=== PATIENT | male | born 1945 | race Asian ===

== ENCOUNTER 2022-03-14 17:08 | Inpatient (IN) | payer MEDICARE, SELFPAY ==
[2022-03-14] VITALS (16 sets, daily range): BP systolic 85–123; BP diastolic 47–80; PULSE 75–149; RESP 22–38; TEMP 36.3; O2SAT 93–97; BMI 24.9
--- NOTE | 2022-03-14 18:25 | CRLHL7_ITS ---
For Patients: As a result of the Cures Act, medical imaging exams and procedure reports are released immediately into your electronic medical record. You may view this report before your referring provider. If you have questions, please contact your health care provider. INDICATION: Shortness of breath. COMPARISON: None. TECHNIQUE: Single-view chest radiograph. FINDINGS: The heart size is normal. There is a thoracic aortic endograft in place. The mediastinum is enlarged with a tortuous thoracic aorta. There are pulmonary opacities in the right lower lobe and to a lesser degree in the right upper lobe. There is no significant pleural effusion or pneumothorax. IMPRESSION: Right lower lobe pulmonary opacities concerning for infection or aspiration, less likely asymmetric edema. Dictated by Donny Keenan MD @ 03/14/2022 7:28:11 PM (Electronically Signed)
[2022-03-14 18:34] LABS: HCO3 VBG 25 mmol/L (21-28); Lactate* 1.8 mmol/L (0.5-1.9); PCO2 VBG 40 mmHG (40-50); PO2 VBG 28.2 mmHG (25-47); pH VBG 7.407 (7.32-7.43)
[2022-03-14 18:37] LABS: Basophils Percent Auto 0.2 % (0.0-3.0); Eosinophils Percent Auto 0.1 % (0.0-7.0); Hematocrit 39.9 % (37.0-53.0); Hemoglobin* 13.1 gm/dL (13.5-17.5); Immature Granulocytes Abs Auto 0.03 K/uL (0.00-0.30); Lymphocytes Percent Auto 7.6 % (20-44); Mean Corpuscular HGB Conc 33 gm/dL (32-36); Mean Corpuscular Hemoglobin 28 pg (26-34); Mean Corpuscular Volume 85 fL (80-100); Monocytes Percent Auto 8.3 % (0.0-11.0); Neutrophils Percent Auto 83.6 % (42.0-72.0); Platelet Count* 234 K/uL (140-440); RDW Coefficient of Variation % 13.5 % (11.5-15.5); Slide Review Reflex No; White Blood Count* 16.08 K/uL (4.50-11.00)
[2022-03-14] MEDS: dilTIAZem 5 MG/ML inj 10 MG IVP (18:38)
[2022-03-14 18:51] LABS: Chloride* 100 mmol/L (96-114)
[2022-03-14 18:52] LABS: Albumin* 3.8 g/dL (3.3-5.0); Sodium* 134 mmol/L (135-149)
[2022-03-14 18:54] LABS: Creatinine* 1.3 mg/dL (0.5-1.5); Estimated Glomerular Filt Rate 57 ml/min
[2022-03-14 18:55] LABS: Alkaline Phosphatase* 83 U/L (40-150); Aspartate Amino Transferase* 34 U/L (12-35); Bilirubin Direct* 0.2 mg/dL (0.0-0.5); Bilirubin Total* 1.2 mg/dL (0.1-1.5); Blood Urea Nitrogen* 23 mg/dL (7-30); Carbon Dioxide* 23 mmol/L (20-32)
[2022-03-14 18:56] LABS: Alanine Aminotransferase* 21 U/L (4-50); Calcium* 8.1 mg/dL (8.4-10.6); D Dimer Quantitative* 2.26 ug/ml (0.00-0.50)
[2022-03-14 19:04] LABS: NT Pro B Type NatriureticPept* 971 PG/mL (0-450)
[2022-03-14 19:14] LABS: C Reactive Protein* 14.8 mg/dL (0.5-1.0)
[2022-03-14 19:14] LABS: PCR FLU A Negative PCR FLU A (Negative); PCR FLU B Negative PCR FLU B (Negative); PCR RSV Negative PCR RSV (Negative)
[2022-03-14 19:35] LABS: SARS PCR* Negative SARS-CoV-2 (Negative)
[2022-03-14 19:37] LABS: Glucose* 111 mg/dL (60-115)
[2022-03-14] MEDS: 0.9 % SODIUM CHLORIDE 500 ML 500 ML IV ×2 (19:48→22:06)
[2022-03-14] MEDS: cefTRIAXone 1 GM in 0.9 % SODIUM CHLORIDE Mini-bag 100 ML IVPB (19:55)
[2022-03-14 20:29] LABS: Free T4 Free Thyroxine* 1.54 ng/dL (0.70-1.85)
[2022-03-14] MEDS: AZITHROMYCIN 500 MG in 0.9 % SODIUM CHLORIDE 250 ml 250 ML 255 MG IVPB (20:43)
--- NOTE | 2022-03-14 21:22 | ED.GENADULT ---
HPI - General Adult General Date Seen: 03/14/22 Chief complaint: Shortness of Breath/Dyspnea Stated complaint: Trouble breathing Time Seen by Provider: 03/14/22 17:31 Source: patient History of Present Illness HPI narrative: Patient is a 77-year-old male who is here with shortness of breath. He tells me that he has been having difficulty with his breathing for a couple of weeks. He describes cough, intermittent fever, unknown how high, cough is nonproductive. He does not describe any chest pain although he says that he has some epigastric pain related to his cough. He does not feel any palpitations, has not had lightheadedness or fainting. He is not sure about any history of atrial fibrillation. He has had some nausea and diarrhea but no vomiting. He has not had any lower extremity pain but does describe some intermittent lower extremity swelling. He did tell me that he thinks he has a history of heart failure and takes a water pill. He also says that he has a couple of stents. He is not entirely clear on his heart history. He has never been to our hospital before. He does not smoke or drink. He is here today with his grandson. He lives at home with his daughter and grandson as well as I believe his . Related Data Home Medications Medication Instructions Recorded Confirmed aspirin 81 mg chewable tablet 81 mg PO DAILY 03/14/22 03/14/22 (Aspirin Childrens) atorvastatin 40 mg tablet 40 mg PO DAILY 03/14/22 03/14/22 losartan 50 mg tablet (Cozaar) 50 mg PO DAILY 03/14/22 03/14/22 metoprolol succinate 25 mg capsule 25 mg PO DAILY 03/14/22 03/14/22 sprinkle, ext. release 24 hr montelukast 10 mg tablet 10 mg PO QHS 03/14/22 03/14/22 Allergies Allergy/AdvReac Type Severity Reaction Status Date / Time naproxen [From Naprosyn] Allergy Mild Verified 03/14/22 17:27 Review of Systems Status of ROS: Reports: 10 or more systems reviewed and unremarkable except as noted in History and below [facility] Social History Smoking Status: Never smoker Do you use any of these nicotine containing products: None Second hand tobacco smoke exposure: No How often do you have a drink containing alcohol: never How often do you have six or more drinks on one occasion: Never AUDIT-C Alcohol total score: 0 Non-prescribed substance use: denies use service: Yes Exam Narrative: Exam Narrative: Vital signs as noted above. In general, an alert, nontoxic male. Head: Normocephalic, atraumatic. Eyes: Pupils are equal reactive. Extraocular movements are full. Conjunctivae are normal. ENT: Mucous membranes are moist. Throat is normal. Neck: Supple without lymphadenopathy. Heart: Irregularly irregular, tachycardic. No murmur. Lungs: Occasional scattered wheeze, rhonchi. No ncreased work of breathing. Abdomen: Soft and nontender. No organomegaly. Extremities: Well perfused. No edema. No calf tenderness. Pulses intact. Neurologic: Patient is alert and oriented to person and place. Speech is fluent. Face is symmetric. Moves all extremities equally. Affect: Normal. Skin: Warm and dry. Well perfused. Const: Vital Signs, click to edit/add: Vital Signs - 24 hr 03/14/22 17:19 03/14/22 18:02 03/14/22 18:33 Temperature 97.4 F L Pulse Rate [Right Pulse Oximeter] 102 H 146 H Respiratory Rate 28 H 30 H Blood Pressure [Le ft Forearm] 123/73 117/80 Pulse Oximetry 95 95 95 Oxygen Delivery Me thod Room Air Room Air Documenting provider has reviewed patient's vital signs: yes Course Course Hospital Course: Patient was maintained on the monitor and oximetry. Noted to be tachycardic and in atrial fibrillation on the monitor. An EKG by my review shows atrial fibrillation with a rate of 148 beats per minute. Nonspecific ST changes but no acute ST segment elevation or depression. Initially, given his stated history of heart failure, I was hesitant to give too much fluid. It was unclear whether his primary problem was atrial fibrillation and poor rate control or whether he had another cause for his shortness of breath such as pneumonia, COPD, pulmonary embolism etcetera. Therefore, I gave him 10 mg of diltiazem, however this did not provide significant rate control and his blood pressure did drop somewhat. He had a chest x-ray at that point and this does show an infiltrate on the right suggestive of a lobar pneumonia. Final radiology report notes a right lower lobe pulmonary opacity concerning for infection or aspiration. His white blood cell count was elevated at 16, hemoglobin of 13.1. Metabolic panel was relatively unremarkable. Lactate was 1.8. LFTs unremarkable, CRP elevated at 14.8. BNP was 971. TSH was 6.7 but free T4 was 1.5. COVID, influenza and RSV were all negative. Troponin was 0. At this point, I think his primary problem is likely infectious, with atrial fibrillation and rapid ventricular response being a secondary problem. It is unclear to me whether he has underlying atrial fibrillation or not, my suspicion is that this is a new problem given that he does not appear to be anticoagulated, but I do not have access to any prior records to confirm this. He does not appear that he is on any kind of diuretic, so again I am not certain whether he has a history of congestive heart failure but given the absence of a diuretic and the presence of metoprolol on his medication list I am again somewhat suspicious that he does not have underlying heart failure. I have given him 500 mL of normal saline, I think it will give him an additional 500 mL as he seemed to have tolerated that 1st 500 just fine. I am going to hold off on further rate medication and see how he does treating pneumonia and giving him some fluids. If we need to add further rate control in after that we can do so. He has had azithromycin and ceftriaxone IV. Blood cultures are pending. He has been afebrile here. Plan will be admission to the hospital for IV antibiotics and rate control of his atrial fibrillation. I have discussed the likely need for a coagulation with him as well though I did not initiate that in the ER. Vital Signs Vital signs: Initial Vital Signs Temperature 97.4 F L 03/14/22 17:19 Temperature Source Temporal Artery Scan 03/14/22 17:19 Pulse Rate 102 H 03/14/22 17:19 Respiratory Rate 28 H 03/14/22 17:19 Blood Pressure 123/73 03/14/22 17:19 Blood Pressure Mean 89 03/14/22 17:19 Blood Pressure Position Sitting 03/14/22 17:19 Pulse Oximetry 95 03/14/22 17:19 Oxygen Delivery Method 03/14/22 17:19 Vital Signs Temperature 97.4 F L 03/14/22 17:19 Pulse Rate 102 H 03/14/22 17:19 Respiratory Rate 28 H 03/14/22 17:19 Blood Pressure 123/73 03/14/22 17:19 Pulse Oximetry 95 03/14/22 17:19 Oxygen Delivery Method 03/14/22 17:19 Temperature 97.4 F L 03/14/22 17:19 Pulse Rate 146 H 03/14/22 18:02 Respiratory Rate 30 H 03/14/22 18:02 Blood Pressure 117/80 03/14/22 18:02 Pulse Oximetry 95 03/14/22 18:33 Oxygen Delivery Method 03/14/22 18:02 Medical Decision Making Lab Data Labs: Lab Results 03/14/22 03/14/22 03/14/22 Range/Units 18:20 18:20 18:20 WBC 16.08 H (4.50-11.00) K/uL RBC 4.70 (4.30-5.90) m/uL Hgb 13.1 L (13.5-17.5) gm/dL Hct 39.9 (37.0-53.0) % MCV 85 (80-100) fL MCH 28 (26-34) pg MCHC 33 (32-36) gm/dL RDW Coeff of Zachary 13.5 (11.5-15.5) % Plt Count 234 (140-440) K/uL Neut % (Auto) 83.6 H (42.0-72.0) % Lymph % (Auto) 7.6 L (20-44) % [place] % (Auto) 8.3 (0.0-11.0) % Eos % (Auto) 0.1 (0.0-7.0) % Baso % (Auto) 0.2 (0.0-3.0) % Neut # (Auto) 13.40 H (1.7-7.0) K/uL Lymph # (Auto) 1.20 (0.90-2.90) K/uL [place] # (Auto) 1.30 H (0.00-0.90) K/UL Eos # (Auto) 0.00 (0.00-0.50) K/uL Baso # (Auto) 0.00 (0.00-0.30) K/uL Abs Immat Gran (auto) 0.03 (0.00-0.30) K/uL D-Dimer Quant (PE/DVT) 2.26 H (0.00-0.50) ug/ml VBG pH (7.32-7.43) VBG pCO2 (40-50) mmHG VBG pO2 (25-47) mmHG VBG HCO3 (21-28) mmol/L Sodium 134 L (135-149) mmol/L Potassium 4.0 (3.6-5.1) mmol/L Chloride 100 (96-114) mmol/L Carbon Dioxide 23 (20-32) mmol/L BUN 23 (7-30) mg/dL Creatinine 1.3 (0.5-1.5) mg/dL Estimated Creat Clear 45.20 Estimated GFR 57 ml/min Glucose 111 (60-115) mg/dL Lactate (0.5-1.9) mmol/L Calcium 8.1 L (8.4-10.6) mg/dL Total Bilirubin 1.2 (0.1-1.5) mg/dL Direct Bilirubin 0.2 (0.0-0.5) mg/dL AST 34 (12-35) U/L ALT 21 (4-50) U/L Alkaline Phosphatase 83 (40-150) U/L C-Reactive Protein 14.8 H (0.5-1.0) mg/dL NT-Pro-B Natriuret Pep 971 H (0-450) PG/mL Total Protein 7.0 (6.0-8.3) g/dL Albumin 3.8 (3.3-5.0) g/dL TSH (0.270-4.200) uIU/mL Free T4 (0.70-1.85) ng/dL SARS-CoV-2 (PCR) (Negative) Influenza Type A (PCR) (Negative) Influenza Type B (PCR) (Negative) RSV (PCR) (Negative) POC Troponin I (0.01-0.04) ng/ml 03/14/22 03/14/22 03/14/22 Range/Units 18:20 18:20 18:20 WBC (4.50-11.00) K/uL RBC (4.30-5.90) m/uL Hgb (13.5-17.5) gm/dL Hct (37.0-53.0) % MCV (80-100) fL MCH (26-34) pg MCHC (32-36) gm/dL RDW Coeff of Zachary (11.5-15.5) % Plt Count (140-440) K/uL Neut % (Auto) (42.0-72.0) % Lymph % (Auto) (20-44) % [place] % (Auto) (0.0-11.0) % Eos % (Auto) (0.0-7.0) % Baso % (Auto) (0.0-3.0) % Neut # (Auto) (1.7-7.0) K/uL Lymph # (Auto) (0.90-2.90) K/uL [place] # (Auto) (0.00-0.90) K/UL Eos # (Auto) (0.00-0.50) K/uL Baso # (Auto) (0.00-0.30) K/uL Abs Immat Gran (auto) (0.00-0.30) K/uL D-Dimer Quant (PE/DVT) (0.00-0.50) ug/ml VBG pH 7.407 (7.32-7.43) VBG pCO2 40 (40-50) mmHG VBG pO2 28.2 (25-47) mmHG VBG HCO3 25 (21-28) mmol/L Sodium (135-149) mmol/L Potassium (3.6-5.1) mmol/L Chloride (96-114) mmol/L Carbon Dioxide (20-32) mmol/L BUN (7-30) mg/dL Creatinine (0.5-1.5) mg/dL Estimated Creat Clear Estimated GFR ml/min Glucose (60-115) mg/dL Lactate 1.8 (0.5-1.9) mmol/L Calcium (8.4-10.6) mg/dL Total Bilirubin (0.1-1.5) mg/dL Direct Bilirubin (0.0-0.5) mg/dL AST (12-35) U/L ALT (4-50) U/L Alkaline Phosphatase (40-150) U/L C-Reactive Protein (0.5-1.0) mg/dL NT-Pro-B Natriuret Pep (0-450) PG/mL Total Protein (6.0-8.3) g/dL Albumin (3.3-5.0) g/dL TSH 6.790 H (0.270-4.200) uIU/mL Free T4 1.54 (0.70-1.85) ng/dL SARS-CoV-2 (PCR) (Negative) Influenza Type A (PCR) (Negative) Influenza Type B (PCR) (Negative) RSV (PCR) (Negative) POC Troponin I 0.00 L (0.01-0.04) ng/ml 03/14/22 Range/Units 18:25 WBC (4.50-11.00) K/uL RBC (4.30-5.90) m/uL Hgb (13.5-17.5) gm/dL Hct (37.0-53.0) % MCV (80-100) fL MCH (26-34) pg MCHC (32-36) gm/dL RDW Coeff of Zachary (11.5-15.5) % Plt Count (140-440) K/uL Neut % (Auto) (42.0-72.0) % Lymph % (Auto) (20-44) % [place] % (Auto) (0.0-11.0) % Eos % (Auto) (0.0-7.0) % Baso % (Auto) (0.0-3.0) % Neut # (Auto) (1.7-7.0) K/uL Lymph # (Auto) (0.90-2.90) K/uL [place] # (Auto) (0.00-0.90) K/UL Eos # (Auto) (0.00-0.50) K/uL Baso # (Auto) (0.00-0.30) K/uL Abs Immat Gran (auto) (0.00-0.30) K/uL D-Dimer Quant (PE/DVT) (0.00-0.50) ug/ml VBG pH (7.32-7.43) VBG pCO2 (40-50) mmHG VBG pO2 (25-47) mmHG VBG HCO3 (21-28) mmol/L Sodium (135-149) mmol/L Potassium (3.6-5.1) mmol/L Chloride (96-114) mmol/L Carbon Dioxide (20-32) mmol/L BUN (7-30) mg/dL Creatinine (0.5-1.5) mg/dL Estimated Creat Clear Estimated GFR ml/min Glucose (60-115) mg/dL Lactate (0.5-1.9) mmol/L Calcium (8.4-10.6) mg/dL Total Bilirubin (0.1-1.5) mg/dL Direct Bilirubin (0.0-0.5) mg/dL AST (12-35) U/L ALT (4-50) U/L Alkaline Phosphatase (40-150) U/L C-Reactive Protein (0.5-1.0) mg/dL NT-Pro-B Natriuret Pep (0-450) PG/mL Total Protein (6.0-8.3) g/dL Albumin (3.3-5.0) g/dL TSH (0.270-4.200) uIU/mL Free T4 (0.70-1.85) ng/dL SARS-CoV-2 (PCR) Negative SARS-CoV-2 (Negative) Influenza Type A (PCR) Negative PCR FLU A (Negative) Influenza Type B (PCR) Negative PCR FLU B (Negative) RSV (PCR) Negative PCR RSV (Negative) POC Troponin I (0.01-0.04) ng/ml Discharge Plan Discharge Prescriptions: No Action aspirin [Aspirin Childrens] 81 mg tablet,chewable 81 mg PO DAILY losartan [Cozaar] 50 mg tablet 50 mg PO DAILY metoprolol succinate 25 mg capsule,sprinkle,ER 24hr 25 mg PO DAILY atorvastatin 40 mg tablet 40 mg PO DAILY montelukast 10 mg tablet 10 mg PO QHS Follow Up/Referrals: Provider,Not a Local [Primary Care Provider] -
--- NOTE | 2022-03-14 22:53 | PM.IMHP1 ---
Hospitalist- H&P: HPI History of Present Illness Date Seen: 03/14/22 Chief complaint: Trouble breathing Narrative: Susan Johnson is a 77 year old male who presented to the ED for dyspnea, noted for the past few weeks, intermittently. He's had associated chest discomfort, cough, and difficulty sleeping (concerning for orthopnea). ER Course and Findings: - a fib with RVR on arrival (HR 140s), improved after IV Diltiazem x1 - negative troponin - RLL pneumonia, treated with Ceftriaxone and Azithromycin I don't have access to patient's medical history or medication list. His PCP is Dr. Naima Evangelista; she's at [facility] ([phone]). Susan notes a history of CKD, CHF, a fib, lung disease (treated in 2018, source unclear). On ASA for anticoagulation. No history of OK, sounds like he's had a stent placed in the past (thoracic aortic endograft noted on CXR). Doesn't remember when his last TTE was. History of multiple hospitalizations in 2018 (at [place]) for recurrent syncope, not an issue recently. Lives with daughter Chio (medical decision maker, if needed) and grandson in [place]. Requests Full Code status. Nonsmoker, no ETOH use. Born in [place], has been in [place] for 40+ years. + COVID vaccinated. Previously worked for the [employer] district in [place], [place]. Review of Systems Status of ROS: Reports: 10 or more systems reviewed and unremarkable except as noted in History and below Narrative: see HPI PFSH PFSH Medical History (Updated 03/14/22 @ 23:43 by Lucy Scott MD) Essential hypertension Hyperlipidemia Surgical History (Updated 03/14/22 @ 23:49 by Lucy Scott MD) S/P insertion of endovascular thoracic aortic stent graft Social History Smoking Status: Never smoker Do you use any of these nicotine containing products: None Second hand tobacco smoke exposure: No How often do you have a drink containing alcohol: never How often do you have six or more drinks on one occasion: Never AUDIT-C Alcohol total score: 0 Non-prescribed substance use: denies use service: Yes Meds Home Medications and Allergies Home Medications Medication Instructions Recorded Confirmed Type aspirin 81 mg chewable tablet 81 mg PO DAILY 03/14/22 03/14/22 History (Aspirin Childrens) atorvastatin 40 mg tablet 40 mg PO DAILY 03/14/22 03/14/22 History losartan 50 mg tablet (Cozaar) 50 mg PO DAILY 03/14/22 03/14/22 History metoprolol succinate 25 mg capsule 25 mg PO DAILY 03/14/22 03/14/22 History sprinkle, ext. release 24 hr montelukast 10 mg tablet 10 mg PO QHS 03/14/22 03/14/22 History Home Medication Comments: Will confirm home med list with pharmacy Allergies Allergy/AdvReac Type Severity Reaction Status Date / Time naproxen [From Naprosyn] Allergy Mild Verified 03/14/22 17:27 Exam Narrative: Exam Narrative: GEN: Alert and oriented, answering questions appropriately HEENT: Normal external ears, EOMIs bilaterally CV: RRR (sinus rhythm during my exam), No concerning murmurs, rubs, or gallops R: Decreased air movement bilateral bases, rales RLL, no wheezing Ext: wwp, no concerning edema Skin: Scars noted anterior BLEs, chronic and stable, per patient Neuro: Nonfocal, no resting tremor, gait not observed Psych: Appropriate Const: Vital Signs, click to edit/add: Vital Signs - 24 hr 03/14/22 17:19 03/14/22 18:02 03/14/22 18:33 Temperature 97.4 F L Pulse Rate [Right Pulse Oximeter] 102 H 146 H Respiratory Rate 28 H 30 H Blood Pressure [Le ft Forearm] 123/73 117/80 Pulse Oximetry 95 95 95 Oxygen Delivery Me thod Room Air Room Air Hospitalist - H&P: Result Labs Labs: Short CBC 03/14/22 Range/Units 18:20 WBC 16.08 H (4.50-11.00) K/uL Hgb 13.1 L (13.5-17.5) gm/dL Hct 39.9 (37.0-53.0) % Plt Count 234 (140-440) K/uL BMP 03/14/22 18:20 Sodium 134 L Potassium 4.0 Chloride 100 Carbon Dioxide 23 BUN 23 Creatinine 1.3 Glucose 111 Calcium 8.1 L Liver Function 10/31/22 Range/Units 18:20 Total Bilirubin 1.2 (0.1-1.5) mg/dL Direct Bilirubin 0.2 (0.0-0.5) mg/dL AST 34 (12-35) U/L ALT 21 (4-50) U/L Alkaline Phosphatase 83 (40-150) U/L Albumin 3.8 (3.3-5.0) g/dL INDICATION: Shortness of breath. COMPARISON: None. TECHNIQUE: Single-view chest radiograph. FINDINGS: The heart size is normal. There is a thoracic aortic endograft in place. The mediastinum is enlarged with a tortuous thoracic aorta. There are pulmonary opacities in the right lower lobe and to a lesser degree in the right upper lobe. There is no significant pleural effusion or pneumothorax. IMPRESSION: Right lower lobe pulmonary opacities concerning for infection or aspiration, less likely asymmetric edema. Assessment and Plan Assessment and plan (1) Dyspnea: Status: Acute Assessment and Plan: - likely multifactorial: a fib, pneumonia, possible CHF exacerbation - d-dimer elevated in ED, will obtain CT PE protocol - TTE tomorrow - continue Ceftriaxone and Azithromycin (2) Atrial fibrillation with rapid ventricular response: Status: Acute Assessment and Plan: - converted in ED after Diltiazem x1. Will use this prn, continue home Metoprolol. (3) Pneumonia: Status: Acute Assessment and Plan: - continue Azithromycin and Ceftriaxone (4) Essential hypertension: Status: Acute (5) Hyperlipidemia: Status: Acute Plan - per above - obtain outside records from PCP, med rec
--- NOTE | 2022-03-14 23:03 | ED.NURSE ---
converted to sinus rhythm-84. [address] echevarria was in the room doing an interview and had noticed the change also.
--- NOTE | 2022-03-14 23:21 | CRLHL7_ITS ---
For Patients: As a result of the Century Cures Act, medical imaging exams and procedure reports are released immediately into your electronic medical record. You may view this report before your referring provider. If you have questions, please contact your health care provider. INDICATION: Shortness of breath. TECHNIQUE: CT chest PE was acquired with 95 cc Isovue 370 IV contrast. COMPARISON: Chest radiograph earlier same day. FINDINGS: Heart and vasculature: Contrast opacification of the pulmonary arterial tree is adequate. No sign of pulmonary embolism. Heart size is normal. Pulmonary artery is normal in caliber. Ectatic ascending thoracic aorta measuring 4.5 cm. 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 Two excluded aneurysmal sacs measuring approximately 10.8 x 5.5 cm and 5.8 x 5.7 cm, respectively. Calcified and soft plaque of the proximal left common carotid artery with moderate stenosis. Lungs and pleura: Mild diffuse bronchial wall thickening. Patchy ground glass opacities involving the right middle and bilateral lower lobes, right greater than left. Clustered nodularity in the anteromedial left upper lobe. No pleural effusions, pleural thickening, or pneumothorax. Lymph nodes/mediastinum: No mediastinal, hilar, or axillary adenopathy. Thyroid gland is unremarkable. Chest wall: No masses. Upper abdomen: Right hepatic lobe cysts. Bones: Unremarkable for age. IMPRESSION: 1. No evidence of pulmonary embolism. 2. Scattered patchy ground glass opacities in the right middle and right greater than left lower lobes, likely representing an infectious/inflammatory process. 3. Endovascular stent graft repair of descending thoracic aortic aneurysms. Please note that all CT scans at this facility use dose modulation, iterative reconstruction, and/or weight-based dosing when appropriate to reduce radiation dose to as low as reasonably achievable. Dictated by Ugo Pabon MD @ 03/15/2022 12:45:47 AM (Electronically Signed)
[2022-03-15] VITALS (9 sets, daily range): BP systolic 108–153; BP diastolic 52–79; PULSE 68–83; RESP 22–28; TEMP 36.4–37.2; O2SAT 93–98; BMI 24.1
[2022-03-15] MEDS: RIVAROXABAN 10 MG TABLET 20 MG PO ×2 (01:03→18:43)
--- NOTE | 2022-03-15 03:21 | PC.NURSE ---
admission note: pt pleasant, A&O. Denies chest pain, SOB, pain, and N/V. Tele reads NSR. Up 1 Assist. Pt unsure of which pharmacy he wanted, pt will update us after he speaks to his daughter in AM. Pt otherwise cooperative and resting in bed with call light within reach.
[2022-03-15 06:56] LABS: Basophils Absolute Auto 0.02 K/uL (0.00-0.30); Basophils Percent Auto 0.2 % (0.0-3.0); Eosinophils Absolute Auto 0.06 K/uL (0.00-0.50); Eosinophils Percent Auto 0.6 % (0.0-7.0); Hematocrit 34.1 % (37.0-53.0); Hemoglobin* 11.1 gm/dL (13.5-17.5); Immature Granulocytes Abs Auto 0.04 K/uL (0.00-0.30); Lymphocytes Percent Auto 11.2 % (20-44); Mean Corpuscular HGB Conc 33 gm/dL (32-36); Mean Corpuscular Hemoglobin 28 pg (26-34); Mean Corpuscular Volume 86 fL (80-100); Neutrophils Percent Auto 77.6 % (42.0-72.0); Platelet Count* 224 K/uL (140-440); RDW Coefficient of Variation % 13.7 % (11.5-15.5); Red Blood Count 3.97 m/uL (4.30-5.90); White Blood Count* 10.85 K/uL (4.50-11.00)
[2022-03-15 06:57] LABS: Slide Review Reflex No
[2022-03-15 07:18] LABS: Albumin* 3.2 g/dL (3.3-5.0); Chloride* 102 mmol/L (96-114)
[2022-03-15 07:19] LABS: Potassium* 4.3 mmol/L (3.6-5.1); Sodium* 134 mmol/L (135-149)
[2022-03-15 07:21] LABS: Alkaline Phosphatase* 76 U/L (40-150); Aspartate Amino Transferase* 28 U/L (12-35); Bilirubin Total* 0.8 mg/dL (0.1-1.5); Carbon Dioxide* 26 mmol/L (20-32); Creatinine* 1.2 mg/dL (0.5-1.5); Est. Creatinine Clearance* 48.96; Estimated Glomerular Filt Rate 63 ml/min; Total Protein* 6.1 g/dL (6.0-8.3)
[2022-03-15 07:22] LABS: Alanine Aminotransferase* 18 U/L (4-50); Blood Urea Nitrogen* 22 mg/dL (7-30); Calcium* 7.5 mg/dL (8.4-10.6); Glucose* 84 mg/dL (60-115); Magnesium* 2.1 mg/dL (1.5-2.6)
[2022-03-15 07:26] LABS: Troponin I* 0.02 ng/mL (0.01-0.04)
[2022-03-15] MEDS: SODIUM CHLORIDE 0.9 % (FLUSH) 10 ML SYRINGE IVF ×2 (08:21→19:56)
[2022-03-15] MEDS: METOPROLOL SUCCINATE (XL) 25 MG TAB PO (08:21)
[2022-03-15] MEDS: ATORVASTATIN CALCIUM 40 MG TABLET PO (08:21)
--- NOTE | 2022-03-15 11:08 | PM.IMPN1 ---
Progress Note: A&P Assessment and plan (1) Dyspnea: Problem details: Multifactorial: COPD/asthma exacerbation, community-acquired pneumonia, AFib with RVR upon ER presentation Status: Acute Assessment and Plan: - patient is slowly improving, not requiring supplemental oxygen - given wheezing this morning and history of COPD/asthma, initiate steroids - RT referral - continue treatment with antibiotics, nebs, and singular (2) Atrial fibrillation with rapid ventricular response: Problem details: History of paroxysmal atrial fibrillation as an outpatient, intermittently compliant with Xarelto secondary to cost Status: Acute Assessment and Plan: - has remained in sinus rhythm after having diltiazem in the emergency room - continue home dose of metoprolol, we have initiated Xarelto during stay and will recommend this upon discharge (3) Pneumonia: Status: Acute Assessment and Plan: - continue azithromycin and ceftriaxone (4) Essential hypertension: Status: Acute (5) Hyperlipidemia: Status: Acute (6) COPD (chronic obstructive pulmonary disease): Status: Acute (7) Moderate persistent asthma: Status: Acute Plan - per above - TTE today - Xarelto for prophylaxis - home with daughter when medically stable, possibly as early as tomorrow Subjective Date Seen: 03/15/22 Interval history: No acute events overnight, no further runs of AFib with RVR. CT scan did not exhibit PE. Patient is little more wheezy this morning. Tolerating current treatments and medications. Received patient's outpatient records from [facility] in [place]. He does have a history of paroxysmal atrial fibrillation on chart review; was on Xarelto but has intermittently stopped this secondary to cost. He also has a history of moderate persistent asthma and COPD, treated with daily Singulair and prn Albuterol. Exam Narrative: Exam Narrative: GEN: Alert and oriented, sitting comfortably in bed and speaking in full sentences HEENT: Normal external ears, EOMIs bilaterally CV: RRR, soft systolic murmur without concerning features or radiation, no rubs or gallops R: Wheezing in bilateral apices, no rales or rhonchi Ext: wwp, no concerning edema Skin: No acute or concerning skin lesions or rashes on exposed skin Neuro: Nonfocal Psych: Appropriate Const: Vital Signs, click to edit/add: Vital Signs - 24 hr 03/14/22 17:19 03/14/22 18:02 03/14/22 18:33 Temperature 97.4 F L Pulse Rate Pulse Rate [Left P ulse Oximeter] Pulse Rate [Right Pulse Oximeter] 102 H 146 H Respiratory Rate 28 H 30 H Blood Pressure [Le ft Arm] Blood Pressure [Le ft Forearm] 123/73 117/80 Pulse Oximetry 95 95 95 Oxygen Delivery Me thod Room Air Room Air 03/14/22 18:30 03/14/22 19:00 03/14/22 19:30 Temperature Pulse Rate Pulse Rate [Left P ulse Oximeter] Pulse Rate [Right Pulse Oximeter] 135 H 128 H 135 H Respiratory Rate 24 38 H 23 Blood Pressure [Le ft Arm] Blood Pressure [Le ft Forearm] 96/75 111/47 L 86/60 L Pulse Oximetry 94 95 95 Oxygen Delivery Me thod Room Air Room Air Room Air 03/14/22 19:50 03/14/22 20:00 03/14/22 20:30 Temperature Pulse Rate Pulse Rate [Left P ulse Oximeter] Pulse Rate [Right Pulse Oximeter] 129 H 112 H 149 H Respiratory Rate 30 H 22 22 Blood Pressure [Le ft Arm] Blood Pressure [Le ft Forearm] 109/65 100/54 L 94/71 Pulse Oximetry 93 95 95 Oxygen Delivery Nc thod Room Air Room Air Room Air 03/14/22 21:00 03/14/22 21:30 03/14/22 22:00 Temperature Pulse Rate Pulse Rate [Left P ulse Oximeter] Pulse Rate [Right Pulse Oximeter] 128 H 81 80 Respiratory Rate 24 28 H Blood Pressure [Le ft Arm] Blood Pressure [Le ft Forearm] 85/72 L 94/58 L 99/59 L Pulse Oximetry 97 95 Oxygen Delivery Me thod Room Air Room Air 03/14/22 22:30 03/14/22 23:00 03/15/22 00:00 Temperature Pulse Rate Pulse Rate [Left P ulse Oximeter] Pulse Rate [Right Pulse Oximeter] 79 81 81 Respiratory Rate 27 H 28 H Blood Pressure [Le ft Arm] Blood Pressure [Le ft Forearm] 98/50 L 117/64 113/52 L Pulse Oximetry 94 97 98 Oxygen Delivery Me thod Room Air Room Air 03/14/22 23:30 03/15/22 00:41 03/15/22 00:41 Temperature 99 F Pulse Rate Pulse Rate [Left P ulse Oximeter] 68 Pulse Rate [Right Pulse Oximeter] 75 Respiratory Rate 33 H 28 H 28 H Blood Pressure [Le ft Arm] 117/61 Blood Pressure [Le ft Forearm] 118/61 Pulse Oximetry 97 97 97 Oxygen Delivery Nc thod Room Air Room Air Room Air 03/14/22 23:26 03/15/22 01:58 03/15/22 03:43 Temperature 98.8 F Pulse Rate 83 Pulse Rate [Left P ulse Oximeter] 78 Pulse Rate [Right Pulse Oximeter] Respiratory Rate 28 H 28 H Blood Pressure [Le ft Arm] 110/69 Blood Pressure [Le ft Forearm] Pulse Oximetry 97 93 Oxygen Delivery Nc thod Room Air Room Air 03/15/22 07:00 03/15/22 07:00 03/15/22 07:00 Temperature 97.8 F Pulse Rate 75 Pulse Rate [Left P ulse Oximeter] 78 73 Pulse Rate [Right Pulse Oximeter] Respiratory Rate 24 24 Blood Pressure [Le ft Arm] 134/78 Blood Pressure [Le ft Forearm] Pulse Oximetry 94 [facility] Labs Labs: Laboratory Results - last 24 hr 03/14/22 03/14/22 03/14/22 18:20 18:20 18:20 WBC 16.08 H RBC 4.70 Hgb 13.1 L Hct 39.9 MCV 85 MCH 28 MCHC 33 RDW Coeff of Zachary 13.5 Plt Count 234 Neut % (Auto) 83.6 H Lymph % (Auto) 7.6 L [place] % (Auto) 8.3 Eos % (Auto) 0.1 Baso % (Auto) 0.2 Neut # (Auto) 13.40 H Lymph # (Auto) 1.20 [place] # (Auto) 1.30 H Eos # (Auto) 0.00 Baso # (Auto) 0.00 Abs Immat Gran (auto) 0.03 D-Dimer Quant (PE/DVT) 2.26 H VBG pH VBG pCO2 VBG pO2 VBG HCO3 Sodium 134 L Potassium 4.0 Chloride 100 Carbon Dioxide 23 BUN 23 Creatinine 1.3 Estimated Creat Clear 45.20 Estimated GFR 57 Glucose 111 Lactate Calcium 8.1 L Magnesium Total Bilirubin 1.2 Direct Bilirubin 0.2 AST 34 ALT 21 Alkaline Phosphatase 83 Troponin I C-Reactive Protein 14.8 H NT-Pro-B Natriuret Pep 971 H Total Protein 7.0 Albumin 3.8 TSH Free T4 SARS-CoV-2 (PCR) Influenza Type A (PCR) Influenza Type B (PCR) RSV (PCR) POC Troponin I 03/14/22 03/14/22 03/14/22 18:20 18:20 18:20 WBC RBC Hgb Hct MCV MCH MCHC RDW Coeff of Zachary Plt Count Neut % (Auto) Lymph % (Auto) [place] % (Auto) Eos % (Auto) Baso % (Auto) Neut # (Auto) Lymph # (Auto) [place] # (Auto) Eos # (Auto) Baso # (Auto) Abs Immat Gran (auto) D-Dimer Quant (PE/DVT) VBG pH 7.407 VBG pCO2 40 VBG pO2 28.2 VBG HCO3 25 Sodium Potassium Chloride Carbon Dioxide BUN Creatinine Estimated Creat Clear Estimated GFR Glucose Lactate 1.8 Calcium Magnesium Total Bilirubin Direct Bilirubin AST ALT Alkaline Phosphatase Troponin I C-Reactive Protein NT-Pro-B Natriuret Pep Total Protein Albumin TSH 6.790 H Free T4 1.54 SARS-CoV-2 (PCR) Influenza Type A (PCR) Influenza Type B (PCR) RSV (PCR) POC Troponin I 0.00 L 03/14/22 03/15/22 03/15/22 18:25 06:12 06:12 WBC 10.85 RBC 3.97 L Hgb 11.1 L Hct 34.1 L MCV 86 MCH 28 MCHC 33 RDW Coeff of Zachary 13.7 Plt Count 224 Neut % (Auto) 77.6 H Lymph % (Auto) 11.2 L [place] % (Auto) 10.0 Eos % (Auto) 0.6 Baso % (Auto) 0.2 Neut # (Auto) 8.40 H Lymph # (Auto) 1.20 [place] # (Auto) 1.10 H Eos # (Auto) 0.06 Baso # (Auto) 0.02 Abs Immat Gran (auto) 0.04 D-Dimer Quant (PE/DVT) VBG pH VBG pCO2 VBG pO2 VBG HCO3 Sodium 134 L Potassium 4.3 Chloride 102 Carbon Dioxide 26 BUN 22 Creatinine 1.2 Estimated Creat Clear 48.96 Estimated GFR 63 Glucose 84 Lactate Calcium 7.5 L Magnesium 2.1 Total Bilirubin 0.8 Direct Bilirubin AST 28 ALT 18 Alkaline Phosphatase 76 Troponin I 0.02 C-Reactive Protein NT-Pro-B Natriuret Pep Total Protein 6.1 Albumin 3.2 L TSH Free T4 SARS-CoV-2 (PCR) Negative SARS-CoV-2 Influenza Type A (PCR) Negative PCR FLU A Influenza Type B (PCR) Negative PCR FLU B RSV (PCR) Negative PCR RSV POC Troponin I
[2022-03-15] MEDS: predniSONE 20 MG TABLET 40 MG PO (11:26)
[2022-03-15] MEDS: ALBUTEROL SULFATE 2.5 MG/3 ML VIAL.NEB NEB (12:30)
--- NOTE | 2022-03-15 16:28 | RESP.RT ---
Pt seen in early afternoon. BBS clear at that time. Breathing is comfortable, regular. Continue with PRN albuterol nebs.
--- NOTE | 2022-03-15 17:14 | PC.NURSE ---
crackles/wheezes to bilateral lungs. Neb given. non productive cough - pt reports pn 2/10 but denies need for tylenol. A/Ox3 - pleasant and cooperative. moving independent in room without concerns.
[2022-03-15] MEDS: AZITHROMYCIN 250 MG TABLET PO (18:43)
[2022-03-15] MEDS: cefTRIAXone 1 GM in 0.9 % SODIUM CHLORIDE Mini-bag 100 ML IVPB (18:44)
[2022-03-15] MEDS: IPRAT-ALBUT 0.5-2.5 MG/3 ML NEB 1 NEB IH ×2 (19:56→23:58)
[2022-03-15] MEDS: PANTOPRAZOLE SODIUM 40 MG INJ IVP (23:01)
[2022-03-15] MEDS: guaiFENesin 100 MG/ML CUP PO (23:59)
[2022-03-16] VITALS (8 sets, daily range): BP systolic 111–138; BP diastolic 71–88; PULSE 74–147; RESP 18–26; TEMP 36.4–36.7; O2SAT 90–95
--- NOTE | 2022-03-16 03:36 | PC.NURSE ---
Davi called at 0315 to report of patient's persistent cough and inability to sleep. Receiving nurse informed commercial lines underwriter that she is going to call back after discussing with the duty MD but has not call back yet.
--- NOTE | 2022-03-16 03:48 | PC.NURSE ---
A follow up call to Davi placed at [phone] as a reminder and racebook writer was told MD is attending to admission case through Davi video and need to wait until done.
[2022-03-16] MEDS: CODEINE/GUAIFENESIN 20-200MG/10 ML SOLN PO ×4 (04:37→21:26)
[2022-03-16] MEDS: IPRAT-ALBUT 0.5-2.5 MG/3 ML NEB 1 NEB IH ×3 (04:43→12:40)
--- NOTE | 2022-03-16 04:44 | PC.NURSE ---
Davi DEGLADO called back at 0410 and ordered for Codeine/Guaifenesin 10ml PRN 4QH.
--- NOTE | 2022-03-16 05:17 | PC.NURSE ---
Shift note: Pt has been having persistent cough and difficulty sleeping. Pt complained of epigastric pain r/t the persistent cough. Ipratropium/Albuterol neb given 2x and Guaifenesin given but were ineffective. Davi called and ordered Codeine/Guaifenesin 10ml 4qh. Pt is independent in room.
[2022-03-16 06:03] LABS: HCO3 VBG 26 mmol/L (21-28); PCO2 VBG 46 mmHG (40-50); PO2 VBG 25.8 mmHG (25-47)
[2022-03-16 06:25] LABS: Basophils Absolute Auto 0.01 K/uL (0.00-0.30); Basophils Percent Auto 0.1 % (0.0-3.0); Hematocrit 31.9 % (37.0-53.0); Hemoglobin* 10.7 gm/dL (13.5-17.5); Immature Granulocytes Abs Auto 0.04 K/uL (0.00-0.30); Lymphocytes Percent Auto 11.7 % (20-44); Mean Corpuscular HGB Conc 34 gm/dL (32-36); Mean Corpuscular Hemoglobin 28 pg (26-34); Mean Corpuscular Volume 84 fL (80-100); Monocytes Percent Auto 8.9 % (0.0-11.0); Neutrophils Percent Auto 78.8 % (42.0-72.0); Platelet Count* 253 K/uL (140-440); RDW Coefficient of Variation % 13.2 % (11.5-15.5); Red Blood Count 3.79 m/uL (4.30-5.90); White Blood Count* 8.01 K/uL (4.50-11.00)
[2022-03-16 06:34] LABS: Slide Review Reflex No
[2022-03-16 06:37] LABS: Chloride* 101 mmol/L (96-114)
[2022-03-16 06:38] LABS: Sodium* 136 mmol/L (135-149)
[2022-03-16 06:40] LABS: Creatinine* 1.1 mg/dL (0.5-1.5); Est. Creatinine Clearance* 53.41; Estimated Glomerular Filt Rate 70 ml/min
[2022-03-16 06:41] LABS: Blood Urea Nitrogen* 18 mg/dL (7-30); Calcium* 7.6 mg/dL (8.4-10.6); Carbon Dioxide* 25 mmol/L (20-32); Glucose* 141 mg/dL (60-115)
[2022-03-16 07:14] LABS: Troponin I* < 0.01 ng/mL (0.01-0.04)
[2022-03-16] MEDS: predniSONE 20 MG TABLET 40 MG PO (07:44)
[2022-03-16] MEDS: SODIUM CHLORIDE 0.9 % (FLUSH) 10 ML SYRINGE IVF ×2 (08:04→21:26)
[2022-03-16] MEDS: METOPROLOL SUCCINATE (XL) 25 MG TAB PO (08:04)
[2022-03-16] MEDS: ATORVASTATIN CALCIUM 40 MG TABLET PO (08:04)
[2022-03-16] MEDS: PANTOPRAZOLE SODIUM 40 MG INJ IVP (08:04)
[2022-03-16] MEDS: ACETAMINOPHEN 325 MG TABLET 650 MG PO ×2 (08:10→15:01)
[2022-03-16] MEDS: dilTIAZem 5 MG/ML inj 10 MG IVP ×2 (08:10→12:40)
--- NOTE | 2022-03-16 08:12 | PC.NURSE ---
RR 30 this AM at 0800 with HR 140's. Metoprolol AM med given early, diltiazem PRN given. Pain with cough - tylenol given.
[2022-03-16] MEDS: BENZOCAINE/MENTHOL 1 EACH LOZENGE MUCOUS MEM ×3 (10:15→19:37)
--- NOTE | 2022-03-16 16:07 | PM.IMPN1 ---
Progress Note: A&P Assessment and plan (1) Atrial fibrillation with rapid ventricular response: Problem details: History of paroxysmal atrial fibrillation as an outpatient, intermittently compliant with Xarelto secondary to cost Status: Acute Assessment and Plan: Tachycardic again today. Change to short acting metoprolol and double overall dose. Start prn metoprolol also. Goal HR is <100 at rest, <110 with activity. (2) Dyspnea: Problem details: Multifactorial: COPD/asthma exacerbation, community-acquired pneumonia, AFib with RVR upon ER presentation Status: Acute Assessment and Plan: see below (3) COPD (chronic obstructive pulmonary disease): Status: Acute Assessment and Plan: Respiratory therapy consult. Continue prednisone, nebs, also use vibratory pep. (4) Pneumonia: Status: Acute Assessment and Plan: Continue azithromycin and ceftriaxone (5) Essential hypertension: Status: Acute Assessment and Plan: Hold losartan to give room to treat elevated HR. (6) Hyperlipidemia: Status: Acute (7) Moderate persistent asthma: Status: Acute (8) Normocytic anemia: Problem details: normal outpatient Hgb 11/2021, hemoccult positive 03/16/2022 Status: Acute Assessment and Plan: Will need outpatient follow up. (9) Ascending aortic aneurysm: Problem details: ECHO 03/16/22: The ascending aorta is dilated with a maximal diameter of 4.7 cm. 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 Status: Acute (11) Abnormal echocardiogram: Problem details: Normal left ventricular size, mildly increased wall thickness, normal global systolic function, calculated EF of 59%. Right ventricular cavity size is normal, global systolic RV function is borderline reduced. Mildly enlarged left atrium. The aortic valve is trileaflet, no stenosis and moderate regurgitation. The mitral valve is normal, mild mitral regurgitation. Moderate tricuspid regurgitation, the estimated right ventricular systolic pressure is 39 mm Hg plus right atrial pressure. The inferior vena cava is dilated, respiratory size variation greater than 50%. The ascending aorta is dilated with a maximal diameter of 4.7 cm. The aortic sinus is dilated with a maximal diameter of 4.2 cm. Status: Acute Plan I spoke with Chance about aortic aneurysms and need for outpatient follow up ECHO in 6 months. Dispo: home with daughter when medically stable. Subjective Time Seen by Provider: 09:24 Date Seen: 03/16/22 Interval history: Donn complains of coughing that is worse at night. He tells me this is chronic, but it does seem to bother him more recently. He also notes left upper/inner thigh numbness and a numbness/tingling of his left back/shoulder which are chronic and began after getting an angiogram through that left femoral artery about a year ago; these symptoms are unchanged. He denies CP or bowel changes. Exam Narrative: Exam Narrative: General: No acute distress. Awake, alert, oriented x3. Very pleasant. No pallor. No jaundice. Oropharynx: Clear. Mucous membranes moist. Cardiovascular: Regular rate and rhythm. Grade 1 systolic murmur loudest at the left sternal border. Respiratory: No respiratory distress. Able to speak in full sentences. Audible wheezing just during my interview. Rhonchi and wheezing throughout left lung field. No crackles. Abdomen: Bowel sounds present. Soft, nondistended, nontender. Extremities: No pedal edema. Const: Vital Signs, click to edit/add: Vital Signs - 24 hr 03/15/22 19:00 03/15/22 23:00 03/15/22 23:00 Temperature 98.1 F Pulse Rate 74 Pulse Rate [Left P ulse Oximeter] 70 Respiratory Rate 24 22 Blood Pressure [Le ft Arm] 148/78 H Pulse Oximetry 93 Oxygen Delivery Mt thod Room Air 03/15/22 23:00 03/16/22 03:00 03/16/22 07:00 Temperature 97.6 F 97.5 F L Pulse Rate Pulse Rate [Left P ulse Oximeter] 69 74 74 Respiratory Rate 22 18 18 Blood Pressure [Le ft Arm] 153/79 H 138/71 Pulse Oximetry 94 90 Oxygen Delivery Mt thod Room Air Room Air 03/16/22 07:00 03/16/22 07:00 03/16/22 11:00 Temperature 97.7 F 98.1 F Pulse Rate 147 H Pulse Rate [Left P ulse Oximeter] 87 122 H Respiratory Rate 18 26 H Blood Pressure [Le ft Arm] 125/77 112/82 Pulse Oximetry 93 94 [facility] Room Air 03/16/22 14:43 03/16/22 14:43 Temperature 97.5 F L Pulse Rate Pulse Rate [Left P ulse Oximeter] 113 H 113 H Respiratory Rate 24 24 Blood Pressure [Le ft Arm] 111/72 Pulse Oximetry 95 Oxygen Delivery Me thod Room Air Labs Labs: Laboratory Results - last 24 hr 03/16/22 03/16/22 03/16/22 05:50 05:50 05:55 WBC 8.01 RBC 3.79 L Hgb 10.7 L Hct 31.9 L MCV 84 MCH 28 MCHC 34 RDW Coeff of Zachary 13.2 Plt Count 253 Neut % (Auto) 78.8 H Lymph % (Auto) 11.7 L [place] % (Auto) 8.9 Eos % (Auto) 0.0 Baso % (Auto) 0.1 Neut # (Auto) 6.30 Lymph # (Auto) 0.90 [place] # (Auto) 0.70 Eos # (Auto) 0.00 Baso # (Auto) 0.01 Abs Immat Gran (auto) 0.04 VBG pH 7.370 VBG pCO2 46 VBG pO2 25.8 VBG HCO3 26 Sodium 136 Potassium 4.0 Chloride 101 Carbon Dioxide 25 BUN 18 Creatinine 1.1 Estimated Creat Clear 53.41 Estimated GFR 70 Glucose 141 H Calcium 7.6 L Troponin I < 0.01 L Echocardiogram 03/15/2022: Normal left ventricular size, mildly increased wall thickness, normal global systolic function, calculated EF of 59%. Right ventricular cavity size is normal, global systolic RV function is borderline reduced. Mildly enlarged left atrium. The aortic valve is trileaflet, no stenosis and moderate regurgitation. The mitral valve is normal, mild mitral regurgitation. Moderate tricuspid regurgitation, the estimated right ventricular systolic pressure is 39 mm Hg plus right atrial pressure. The inferior vena cava is dilated, respiratory size variation greater than 50%. The ascending aorta is dilated with a maximal diameter of 4.7 cm. The aortic sinus is dilated with a maximal diameter of 4.2 cm.
[2022-03-16] MEDS: METOPROLOL TARTRATE 25 MG TABLET PO ×2 (16:29→21:25)
[2022-03-16] MEDS: RIVAROXABAN 10 MG TABLET 20 MG PO (19:37)
[2022-03-16] MEDS: cefTRIAXone 1 GM in 0.9 % SODIUM CHLORIDE Mini-bag 100 ML IVPB (19:37)
[2022-03-16] MEDS: AZITHROMYCIN 250 MG TABLET PO (19:37)
[2022-03-17] MEDS: MELATONIN 3 MG TABLET PO (00:07)
[2022-03-17] MEDS: IPRAT-ALBUT 0.5-2.5 MG/3 ML NEB 1 NEB IH ×3 (00:07→15:59)
[2022-03-17] MEDS: guaiFENesin 100 MG/ML CUP PO ×3 (00:12→21:51)
[2022-03-17 03:00] VITALS: PULSE 101; RESP 18
--- NOTE | 2022-03-17 04:35 | PC.NURSE ---
Addendum entered by Latanya Nieves RN 03/17/22 04:46: tele has shown Afib rate 90-110s, occasional 120s. Original Note: [id number]: patient fatigued, able to fall asleep for several hours overnight. dry cough continues, see EMAR for PRNs given. patients up ad baljinder. afebrile.
[2022-03-17 07:00] VITALS: BP 119/84; PULSE 83; PULSE 96; RESP 20; TEMP 36.6; O2SAT 96
[2022-03-17 07:04] LABS: Basophils Percent Auto 0.1 % (0.0-3.0); Eosinophils Percent Auto 0.1 % (0.0-7.0); Hematocrit 35.1 % (37.0-53.0); Hemoglobin* 11.3 gm/dL (13.5-17.5); Lymphocytes Percent Auto 11.6 % (20-44); Mean Corpuscular HGB Conc 32 gm/dL (32-36); Mean Corpuscular Hemoglobin 28 pg (26-34); Mean Corpuscular Volume 86 fL (80-100); Monocytes Percent Auto 9.7 % (0.0-11.0); Neutrophils Percent Auto 77.7 % (42.0-72.0); Platelet Count* 298 K/uL (140-440); RDW Coefficient of Variation % 13.6 % (11.5-15.5); Red Blood Count 4.09 m/uL (4.30-5.90); White Blood Count* 12.13 K/uL (4.50-11.00)
[2022-03-17 07:06] LABS: Slide Review Reflex No
[2022-03-17] MEDS: predniSONE 20 MG TABLET 40 MG PO (09:13)
[2022-03-17] MEDS: ATORVASTATIN CALCIUM 40 MG TABLET PO (09:15)
[2022-03-17] MEDS: METOPROLOL TARTRATE 50 MG TABLET PO ×2 (09:15→21:51)
[2022-03-17] MEDS: SODIUM CHLORIDE 0.9 % (FLUSH) 10 ML SYRINGE IVF ×3 (09:16→21:52)
[2022-03-17] MEDS: PANTOPRAZOLE SODIUM 40 MG INJ IVP (09:16)
--- NOTE | 2022-03-17 10:38 | PM.IMPN1 ---
Progress Note: A&P Assessment and plan (1) Atrial fibrillation with rapid ventricular response: Problem details: History of paroxysmal atrial fibrillation as an outpatient, intermittently compliant with Xarelto secondary to cost Status: Acute Assessment and Plan: Improving with the changes made to oral metoprolol. His blood pressure is better today, so I can increase the scheduled dosing of metoprolol even further. I anticipate that with this change he will come under control with a heart rate at is <100 at rest and <110 with activity. I anticipate that he will be okay to discharge tomorrow on this higher dose of metoprolol. (2) Dyspnea: Problem details: Multifactorial: COPD/asthma exacerbation, community-acquired pneumonia, AFib with RVR upon ER presentation Status: Acute Assessment and Plan: see below (3) COPD (chronic obstructive pulmonary disease): Problem details: Exacerbation Status: Acute Assessment and Plan: Improving. Continue prednisone, nebs, vibratory pep. (4) Pneumonia: Status: Acute Assessment and Plan: Continue azithromycin and ceftriaxone, transition to oral antibiotics on discharge. (5) Essential hypertension: Status: Acute Assessment and Plan: Hold losartan to give room to treat elevated HR. (6) Hyperlipidemia: Status: Acute (7) Moderate persistent asthma: Status: Acute Assessment and Plan: Exacerbation is improving. Continue prednisone, nebs, vibratory pep. (8) Normocytic anemia: Problem details: normal outpatient Hgb 11/2021, hemoccult positive 03/16/2022 Status: Acute Assessment and Plan: Will need outpatient follow up. (9) Ascending aortic aneurysm: Problem details: ECHO 03/16/22: The ascending aorta is dilated with a maximal diameter of 4.7 cm. Status: Acute Assessment and Plan: I spoke with Chance about aortic aneurysms and need for outpatient follow up ECHO in 6 months. 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 Status: Acute Assessment and Plan: I spoke with Chance about aortic aneurysms and need for outpatient follow up ECHO in 6 months. (11) Abnormal echocardiogram: Problem details: Normal left ventricular size, mildly increased wall thickness, normal global systolic function, calculated EF of 59%. Right ventricular cavity size is normal, global systolic RV function is borderline reduced. Mildly enlarged left atrium. The aortic valve is trileaflet, no stenosis and moderate regurgitation. The mitral valve is normal, mild mitral regurgitation. Moderate tricuspid regurgitation, the estimated right ventricular systolic pressure is 39 mm Hg plus right atrial pressure. The inferior vena cava is dilated, respiratory size variation greater than 50%. The ascending aorta is dilated with a maximal diameter of 4.7 cm. The aortic sinus is dilated with a maximal diameter of 4.2 cm. Status: Acute Plan Dispo: home with daughter when medically stable. I suspect his heart rate will be under control, and he will be ready by tomorrow. Subjective Time Seen by Provider: 09:00 Date Seen: 03/17/22 Interval history: Chance tells me that he is feeling better today. He is breathing a bit better and his cough was much better overnight. He feels vibratory pep has been helpful. Feels like he got more sleep last night than previously. He denies any chest pain. Toward the end of our conversation, he started having a coughing fit with some phlegm. I called the nurse and asked for an neb to be given, and he started using his vibratory pep, which was helpful. He tearfully shared with me that he is concerned about his health overall. He has noted more problems since 2018 that he has had previously in this life. He tells me that during these difficult times, his has been caring for him, but recently she fell and has needed him to care for her. Their daughter is close by and, in fact caring for his while he is in the hospital. He notes that his misses him very much and he is looking forward to being discharged so that he can see her again. Exam Narrative: Exam Narrative: General: No acute distress. Awake, alert, oriented x3. Very pleasant. No pallor. No jaundice. Oropharynx: Clear. Mucous membranes moist. Cardiovascular: Regular rate and rhythm. Grade 1 systolic murmur loudest at the left sternal border. Respiratory: No respiratory distress. Able to speak in full sentences. No wheezing today. Rhonchi in left lung field persist, but somewhat improved from yesterday. No crackles. Abdomen: Bowel sounds present. Soft, nondistended, nontender. Extremities: No pedal edema. Const: Vital Signs, click to edit/add: Vital Signs - 24 hr 03/16/22 11:00 03/16/22 14:43 03/16/22 14:43 Temperature 98.1 F 97.5 F L Pulse Rate Pulse Rate [Left P ulse Oximeter] 122 H 113 H 113 H Respiratory Rate 26 H 24 24 Blood Pressure [Le ft Arm] 112/82 111/72 Pulse Oximetry 94 95 Oxygen Delivery Me thod Room Air Room Air 03/16/22 15:00 03/16/22 19:00 03/16/22 21:29 Temperature 97.5 F L Pulse Rate 101 H 109 H Pulse Rate [Left P ulse Oximeter] 99 Respiratory Rate 24 Blood Pressure [Le ft Arm] 129/88 Pulse Oximetry 95 Oxygen Delivery Pr thod Room Air 03/16/22 23:00 03/16/22 23:00 03/17/22 03:00 Temperature 98 F Pulse Rate Pulse Rate [Left P ulse Oximeter] 98 98 101 H Respiratory Rate 24 20 18 Blood Pressure [Le ft Arm] 129/88 Pulse Oximetry 95 Oxygen Delivery Pr thod Room Air Room Air 03/17/22 07:00 03/17/22 07:00 03/17/22 07:00 Temperature 97.8 F Pulse Rate 96 Pulse Rate [Left P ulse Oximeter] 83 83 Respiratory Rate 20 20 Blood Pressure [Le ft Arm] 119/84 Pulse Oximetry 96 Oxygen Delivery Me thod Room Air Labs Labs: Laboratory Results - last 24 hr 03/16/22 03/17/22 05:50 06:23 WBC 12.13 H RBC 4.09 L Hgb 11.3 L Hct 35.1 L MCV 86 MCH 28 MCHC 32 RDW Coeff of Zachary 13.6 Plt Count 298 Neut % (Auto) 77.7 H Lymph % (Auto) 11.6 L [place] % (Auto) 9.7 Eos % (Auto) 0.1 Baso % (Auto) 0.1 Neut # (Auto) 9.40 H Lymph # (Auto) 1.40 [place] # (Auto) 1.20 H Eos # (Auto) 0.00 Baso # (Auto) 0.00 Abs Immat Gran (auto) 0.10 Imm/Tot Granulo (auto) Not Reportable
[2022-03-17 11:00] VITALS: BP 110/76; PULSE 90; RESP 20; TEMP 36.6; O2SAT 94
[2022-03-17 11:35] LABS: Immature Granulocytes Pct Auto 0.1 %
[2022-03-17] MEDS: AZITHROMYCIN 250 MG TABLET 500 MG PO (11:40)
[2022-03-17] MEDS: cefTRIAXone 1 GM in 0.9 % SODIUM CHLORIDE Mini-bag 100 ML IVPB (11:40)
[2022-03-17 15:00] VITALS: BP 114/66; PULSE 112; PULSE 116; RESP 18; TEMP 36.6; O2SAT 96
[2022-03-17] MEDS: CODEINE/GUAIFENESIN 20-200MG/10 ML SOLN PO (15:58)
[2022-03-17] MEDS: METOPROLOL TARTRATE 25 MG TABLET PO (15:59)
--- NOTE | 2022-03-17 17:30 | PC.NURSE ---
PATIENT PLEASANT AND COOPERATIVE, UP IND WITH STEADY GAIT, SOB WITH ACTIVITY PER PATIENT BETTER THAN ON ADMISSION I JUST HAVE TO MOVE SLOW, PATIENT FELT HE WAS ABLE TO GET SOME SLEEP LAST NIGHT, TELE SHOWING AFIB PRN METOPROLOL DOES GIVEN THIS AFTERNOON FOR HR CONSISTENTLY OVER 100, PT DECLINING DIZZINESS/LIGHTHEADEDNESS WITH AMBULATION, BARKING COUGH NOTED FOR WHICH DOES CAUSE PAIN IN CHEST AND ABDOMEN PRN COUGH SYRUP WITH RELIEF, IV SALINE LOCK INTACT, USING AREOBKA AND PRN NEBS WITH SOME RELIEF.
[2022-03-17] MEDS: RIVAROXABAN 10 MG TABLET 20 MG PO (17:38)
[2022-03-17 19:00] VITALS: BP 114/75; PULSE 107; RESP 22; TEMP 36.5; O2SAT 94
[2022-03-17] MEDS: ACETAMINOPHEN 325 MG TABLET 650 MG PO (21:50)
[2022-03-17 23:00] VITALS: BP 118/78; PULSE 96; RESP 20; TEMP 36.4; O2SAT 93
[2022-03-18 01:25] VITALS: PULSE 89
[2022-03-18 03:00] VITALS: BP 130/81; PULSE 98; RESP 18; TEMP 36.4; O2SAT 95
[2022-03-18 07:00] VITALS: BP 137/88; PULSE 98; RESP 18; TEMP 36.7; O2SAT 93
--- NOTE | 2022-03-18 07:00 | PC.NURSE ---
END OF SHIFT NOTE: PT PLEASANT AND COOPERATIVE. PT AMBULATES IN ROOM INDEPENDENTLY. LS WITH WHEEZES AND CRACKLES UPON AUSCULTATION. PT C/O DISCOMFORT TO BACK, CHEST AND ABDOMEN OF?5/10 WHEN COUGHING. PT DENIED NEED FOR PAIN MEDS. PT C/O DIZZINESS EARLY IN SHIFT THAT RESOLVED ON ITS OWN. UNMARKABLE NIGHT.
[2022-03-18] MEDS: predniSONE 20 MG TABLET 40 MG PO (07:55)
[2022-03-18] MEDS: ATORVASTATIN CALCIUM 40 MG TABLET PO (08:58)
[2022-03-18] MEDS: PANTOPRAZOLE SODIUM 40 MG INJ IVP (08:58)
[2022-03-18] MEDS: SODIUM CHLORIDE 0.9 % (FLUSH) 10 ML SYRINGE IVF (08:58)
[2022-03-18] MEDS: METOPROLOL TARTRATE 50 MG TABLET PO (08:58)
--- NOTE | 2022-03-18 12:28 | PC.NURSE ---
DISCHARGE: PT PLEASANT AND COOPERATIVE. VSS. PT AMBULATES INDEP. IN ROOM. LS WITH WHEEZES AND CRACKLES UPON AUSCULTATION. PT DENIES ANY PAIN OTHER THAN WHEN COUGHING. PT DENIED NEED FOR PAIN MEDS. PT. DISCHARGED AT 1140, IV REMOVED INTACT. PT. BELONGINGS LIST SIGNED AND DISCHARGE INSTRUCTIONS GIVEN AND SIGNED.
--- NOTE | 2022-03-18 13:50 | PM.DS1 ---
DS: Providers Provider Date Seen: 03/18/22 Date of admission: 03/15/22 00:07 Primary care physician: Not a Local Provider Admitting Clinician: Lucy Scott MD Attending Physician on discharge: Lucy Scott MD Date of Discharge: 03/18/22 DS: Diagnosis Discharge Diagnosis (1) COPD (chronic obstructive pulmonary disease): Status: Acute Problem details: Exacerbation. Improved today. No significant wheezing today. Taper steroids. Continue outpatient inhalers (2) Dyspnea: Status: Acute Problem details: Multifactorial: COPD/asthma exacerbation, community-acquired pneumonia, AFib with RVR upon ER presentation (3) Pneumonia: Status: Acute Problem details: Improved. No longer febrile or hypoxic. Treated with ceftriaxone and azithromycin. Continue 3 more days of Augmentin as an outpatient. (4) Atrial fibrillation with rapid ventricular response: Status: Acute Problem details: History of paroxysmal atrial fibrillation. Previously on anticoagulation but discontinued. Now in AFib requiring rate control with higher dose metoprolol, 100 mg daily. Recommend resuming anticoagulation with apixaban. (5) Essential hypertension: Status: Acute (6) Moderate persistent asthma: Status: Acute DS: Summary Hospital Course Hospital Course: 77-year-old male admitted to the hospital with dyspnea and cough. At the time of admission he was found to have a right sided pneumonia. He is felt to be in a COPD exacerbation as well. There is a question of heart failure though no definite evidence for that diagnosis. He was also in atrial fibrillation with rapid ventricular response. He has a history of paroxysmal atrial fibrillation. During his hospital stay he was treated with ceftriaxone and azithromycin for his community-acquired pneumonia. His metoprolol was increased from 25-100 mg daily to control his atrial fibrillation rate. He was initiated on apixaban for stroke prophylaxis with his atrial fibrillation. Was given prednisone for his COPD exacerbation along with inhaled bronchodilators. With all this he had marked improvement in all of his symptoms and his vital signs during his hospital stay. Today he reports feeling well and having no specific concerns. He is still coughing up some green tinged mucus. No chest pain or fever. Status at Discharge Functional status at discharge: independent ambulation Overall status at discharge: patient is progressing back to baseline Time Spent with Patient Time attestation: Total time spent providing and/or coordinating discharge services: Time spent: Greater than 30 minutes Exam Narrative: Exam Narrative: He is alert, pleasant and in no distress. He is oriented to his circumstances. Breathing is unlabored on room air. Respirations are clear to auscultation except for a few crackles at his right lateral base. No marked wheezing or prolonged expiratory phase. Cardiovascular: S1, S2, irregularly irregular rhythm. Abdomen is soft without tenderness extremities without significant edema. Const: Vital Signs, click to edit/add: Vital Signs - 24 hr 03/17/22 15:00 03/17/22 15:00 03/17/22 15:00 Temperature 97.8 F Pulse Rate 116 H Pulse Rate [Left P ulse Oximeter] 112 H 112 H Respiratory Rate 18 18 Blood Pressure [Le ft Arm] 114/66 Pulse Oximetry 96 Oxygen Delivery Me thod Room Air 03/17/22 23:00 03/17/22 23:00 03/17/22 19:00 Temperature 97.6 F 97.7 F Pulse Rate Pulse Rate [Left P ulse Oximeter] 96 96 107 H Respiratory Rate 20 20 22 Blood Pressure [Le ft Arm] 118/78 114/75 Pulse Oximetry 93 94 Oxygen Delivery Sd thod Room Air Room Air 03/18/22 03:00 03/18/22 01:25 03/18/22 07:00 Temperature 97.6 F Pulse Rate 89 Pulse Rate [Left P ulse Oximeter] 98 98 Respiratory Rate 18 18 Blood Pressure [Le ft Arm] 130/81 Pulse Oximetry 95 Oxygen Delivery Me thod Room Air 03/18/22 07:00 Temperature 98.0 F Pulse Rate Pulse Rate [Left P ulse Oximeter] 98 Respiratory Rate 18 Blood Pressure [Le ft Arm] 137/88 Pulse Oximetry 93 Oxygen Delivery Sd thod Room Air DS: Data Data Completed and Pending Labs on day of discharge: Preliminary micro results at discharge 03/14/22 19:55 Blood Culture - Preliminary Blood NO GROWTH AFTER 72 HOURS 03/14/22 18:20 Blood Culture - Preliminary Blood NO GROWTH AFTER 72 HOURS Discharge Plan Discharge Disposition: Home, Self-Care Date of Admission: 03/15/22 00:07 Attending Provider on Discharge: Delfino Mistry Primary Care Provider: Provider,Not a Local Condition: Improved Anticipated Discharge Date/Time: 03/18/22 11:30 Discharge Medications: New Xarelto 10 mg Tablet 20 mg PO DAILY@1800 Qty: 30 0RF prednisone 20 mg tablet 20 mg PO DAILY Qty: 3 0RF amoxicillin-pot clavulanate 875-125 mg tablet 1 tab PO BID Qty: 6 0RF Continued losartan [Cozaar] 50 mg tablet 50 mg PO DAILY atorvastatin 40 mg tablet 40 mg PO DAILY montelukast 10 mg tablet 10 mg PO QHS Changed metoprolol succinate 25 mg capsule,sprinkle,ER 24hr 50 mg PO BID Qty: 120 0RF Discontinued aspirin [Aspirin Childrens] 81 mg tablet,chewable 81 mg PO DAILY Discharge Orders: Discharge Order (Routine); Ordered 03/18/22 Ordered By: Delfino Mistry Patient Education: Prednisone (By mouth), Amoxicillin/Clavulanate Potassium (By mouth), Rivaroxaban (By mouth), A-fib (Atrial Fibrillation) (DC), Pneumonia (DC) Additional Instructions: See your doctor next week to recheck your pneumonia and your atrial fibrillation. Activity Level: Activity as Tolerated Discharge Diet: Regular Follow Up Appointments: Provider,Not a Local [Primary Care Provider] - Forms: [facility] Info Instructions
== END 2022-03-18 11:40 | disposition home or self-care (01) | DRG 190 ==
LOC: ED 21:47 → MEDSURG 03-15 00:09
PROVIDERS: Family Medicine; Admitting Provider Family Medicine; Emergency Provider Emergency Medicine; Visit Provider Family Medicine
DX: J44.0 Chronic obstructive pulmonary disease with (acute) lower respiratory infection (principal); J18.9 Pneumonia, unspecified organism; J45.41 Moderate persistent asthma with (acute) exacerbation; J44.1 Chronic obstructive pulmonary disease with (acute) exacerbation; I48.0 Paroxysmal atrial fibrillation; I12.9 Hypertensive chronic kidney disease with stage 1 through stage 4 chronic kidney disease, or unspecified chronic kidney disease; N18.9 Chronic kidney disease, unspecified; D64.9 Anemia, unspecified; I71.21 Aneurysm of the ascending aorta, without rupture; I08.3 Combined rheumatic disorders of mitral, aortic and tricuspid valves; E78.5 Hyperlipidemia, unspecified
CPT/HCPCS: 36415; 71045; 71260; 80048; 80053; 80076; 82803; 83605; 83735; 83880; 84439; 84443; 84484; 85025; 85379; 86140; 87040; 87502; 87634; 87635; 93005; 93306; 94640; 94664; 94761; 99284; 99285; A9270; C9113; J0456; J0696; J7050; J7120; J7512; Q9967

== ENCOUNTER 2022-06-06 14:21 | Emergency (ER) | payer MEDICARE, SELFPAY ==
[2022-06-06 14:33] VITALS: BP 174/74; PULSE 84; RESP 34; TEMP 36.4; O2SAT 96; BMI 24.1
[2022-06-06 15:32] LABS: HCO3 VBG 30 mmol/L (21-28); PCO2 VBG 56 mmHG (40-50); PO2 VBG 27.1 mmHG (25-47); pH VBG 7.341 (7.32-7.43)
[2022-06-06] MEDS: IPRAT-ALBUT 0.5-2.5 MG/3 ML NEB 1 NEB IH (15:41)
[2022-06-06] MEDS: predniSONE 20 MG TABLET 60 MG PO (15:41)
[2022-06-06 15:42] LABS: Basophils Absolute Auto 0.07 K/uL (0.00-0.30); Basophils Percent Auto 1.1 % (0.0-3.0); Hemoglobin* 12.5 gm/dL (13.5-17.5); Immature Granulocytes Abs Auto 0.04 K/uL (0.00-0.30); Immature Granulocytes Pct Auto 0.6 %; Lymphocytes Absolute Auto 1.43 K/uL (0.90-2.90); Lymphocytes Percent Auto 23.1 % (20-44); Mean Corpuscular HGB Conc 32 gm/dL (32-36); Mean Corpuscular Hemoglobin 28 pg (26-34); Mean Corpuscular Volume 88 fL (80-100); Monocytes Percent Auto 8.5 % (0.0-11.0); Neutrophils Percent Auto 51.7 % (42.0-72.0); Platelet Count* 188 K/uL (140-440); RDW Coefficient of Variation % 13.9 % (11.5-15.5); Red Blood Count 4.45 m/uL (4.30-5.90)
[2022-06-06 15:51] VITALS: O2SAT 94
[2022-06-06 15:53] LABS: D Dimer Quantitative* 3.71 ug/ml (0.00-0.50)
[2022-06-06 15:55] LABS: Chloride* 108 mmol/L (96-114); Slide Review Reflex No
[2022-06-06 15:56] LABS: Potassium* 4.5 mmol/L (3.6-5.1); Sodium* 141 mmol/L (135-149)
[2022-06-06 15:58] LABS: Aspartate Amino Transferase* 25 U/L (12-35); Bilirubin Direct* 0.2 mg/dL (0.0-0.5); Bilirubin Total* 0.6 mg/dL (0.1-1.5); Carbon Dioxide* 28 mmol/L (20-32); Creatinine* 1.3 mg/dL (0.5-1.5); Estimated Glomerular Filt Rate 57 ml/min; Total Protein* 6.7 g/dL (6.0-8.3)
[2022-06-06 15:59] LABS: Alanine Aminotransferase* 16 U/L (4-50); Alkaline Phosphatase* 62 U/L (40-150); Blood Urea Nitrogen* 16 mg/dL (7-30); Calcium* 8.7 mg/dL (8.4-10.6); Glucose* 94 mg/dL (60-115)
--- NOTE | 2022-06-06 16:05 | CRLHL7_ITS ---
For Patients: As a result of the Century Cures Act, medical imaging exams and procedure reports are released immediately into your electronic medical record. You may view this report before your referring provider. If you have questions, please contact your health care provider. INDICATION: Shortness of breath, elevated D-dimer. TECHNIQUE: CT chest PE was acquired with 95 cc Isovue 370 IV contrast. COMPARISON: February 2022 CT FINDINGS: Pulmonary Arteries: No CT evidence of pulmonary thromboembolic disease. No pulmonary hypertension or right ventricular strain. Heart and Mediastinum: Atrophic thyroid. No axillary or supraclavicular lymphadenopathy. Stable posterior soft tissue curvilinear opacity in the posterior mediastinum causing anterior displacement and mass effect on the esophagus at this level, axial images 51-112, likely reflecting contained old prior rupture. Other differential considerations include lymphadenopathy. This is felt to be less likely. Descending thoracic aortic stent graft normal heart size. Stable appearance of the excluded descending thoracic aortic aneurysm. Atherosclerotic calcifications. Trace pericardial fluid. Lungs and Airways: No mass or consolidation. Basilar dependent predominant linear areas of reticulation likely linear fibrosis. Scattered areas of endobronchial mucous plugging. Retained tracheal secretions. Pleura: The pleural spaces are normal. Abdomen: Multifocal hepatic cysts and subcentimeter hypodensities that are too small to characterize however statistically represent cysts in the absence of known malignancy. Left renal cyst. Bones and soft tissues: The skeletal structures and soft tissues of the chest wall are unremarkable. IMPRESSION: 1. No CT evidence of pulmonary thromboembolic disease. 2. No intrathoracic consolidation. 3. Stable appearance of posterior mediastinum likely old contained rupture. Stable descending thoracic aortic stent graft and descending thoracic aortic excluded aneurysm. 4. Scattered areas of endobronchial mucous plugging. Please note that all CT scans at this facility use dose modulation, iterative reconstruction, and/or weight-based dosing when appropriate to reduce radiation dose to as low as reasonably achievable. Dictated by Galindo Younger MD @ 06/06/2022 5:20:19 PM (Electronically Signed)
[2022-06-06 16:07] LABS: C Reactive Protein* < 0.5 mg/dL (0.5-1.0); NT Pro B Type NatriureticPept* 430 pg/mL
[2022-06-06 16:26] LABS: PCR FLU A Negative PCR FLU A (Negative); PCR FLU B Negative PCR FLU B (Negative); PCR RSV Negative PCR RSV (Negative)
[2022-06-06 17:03] LABS: SARS PCR* Negative SARS-CoV-2 (Negative)
[2022-06-06 18:32] VITALS: BP 156/91; PULSE 67; RESP 20; O2SAT 96
--- NOTE | 2022-06-06 19:23 | ED_ITS ---
HPI - General Adult General Date Seen: 06/06/22 Chief complaint: Shortness of Breath/Dyspnea Stated complaint: Difficulty Breathing Time Seen by Provider: 06/06/22 14:27 Source: patient and family Mode of arrival: ambulatory Limitations: no limitations History of Present Illness HPI narrative: Patient is a 77-year-old male with underlying COPD who presents for ongoing cough and shortness of breath. His symptoms have slightly worsened in the past couple of days. He did see his primary care clinic last week, he has an upcoming appointment with Pulmonary on June 17 because of worsening shortness of breath. He has inhalers which he uses regularly. He has a history of aortic aneurysm status post stent. His feels like after he got that stent he was doing well but he has progressively worsened since then. He does have a history of atrial fibrillation with rapid ventricular response but does not feel like his heart has been racing. He has not had chest pain. He has a chronic cough does not feel that that is significantly changed. Usually his cough is dry. Sometimes has a little swelling in his legs but not really right now. Has not had a fever. Related Data Home Medications Medication Instructions Recorded Confirmed atorvastatin 40 mg tablet 40 mg PO DAILY 03/14/22 03/14/22 losartan 50 mg tablet (Cozaar) 50 mg PO DAILY 03/14/22 03/14/22 montelukast 10 mg tablet 10 mg PO QHS 03/14/22 03/14/22 Previous Rx's Medication Instructions Recorded amoxicillin 875 mg-potassium 1 tab PO BID #6 tabs 03/18/22 clavulanate 125 mg tablet metoprolol succinate 25 mg capsule 50 mg PO BID #120 ea 03/18/22 sprinkle, ext. 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 Ascending aortic aneurysm COPD (chronic obstructive pulmonary disease) Dyspnea Essential hypertension Hyperlipidemia Moderate persistent asthma Surgical History H/O craniotomy S/P insertion of endovascular thoracic aortic stent graft Social History Highest level of school completed/degree received: Associate degree: academic program Smoking Status: Never smoker Do you use any of these nicotine containing products: None Second hand tobacco smoke exposure: No How often do you have a drink containing alcohol: never How often do you have six or more drinks on one occasion: Never AUDIT-C Alcohol total score: 0 Non-prescribed substance use: denies use Caffeine: Yes (1 cup coffee daily) service: Yes Exam Narrative: Exam Narrative: Vital signs as noted above. In general, an alert, nontoxic male. He is sitting cross-legged on the bed. Tachypneic, no other signs of respiratory distress. Head: Normocephalic, atraumatic. Eyes: Pupils are equal reactive. Extraocular movements are full. Conjunctivae are normal. ENT: Mucous membranes are moist. Throat is normal. Neck: Supple without lymphadenopathy. Heart: Regular rate and rhythm. No murmur or rub. Lungs: Breath sounds are clear but somewhat decreased, cough is bronchospastic. No crackles. Abdomen: Soft and nontender. No organomegaly. Extremities: Well perfused. No edema. No calf tenderness. Pulses intact. Neurologic: Patient is alert and oriented to person and place. Speech is fluent. Face is symmetric. Moves all extremities equally. Affect: Normal. Skin: Warm and dry. Well perfused. Const: Vital Signs, click to edit/add: Vital Signs - 24 hr 06/06/22 14:33 06/06/22 15:51 06/06/22 18:32 Temperature 97.5 F L Pulse Rate [Left P ulse Oximeter] 84 67 Respiratory Rate 34 H 20 Blood Pressure [Ri ght Upper Arm] 174/74 H 156/91 H Pulse Oximetry 96 94 96 Oxygen Delivery Me thod Room Air Room Air Documenting provider has reviewed patient's vital signs: yes Course Course Hospital Course: Following initial evaluation, patient had an EKG which by my review showed a normal sinus rhythm, ventricular rate of 63 beats per minute. No acute ST segment changes. He had a DuoNeb as well as 60 mg of oral prednisone. Respiratory rate and shortness of breath were improved after DuoNeb. He had labs including a CBC which showed a normal white blood cells count of 6.2, hemoglobin of 12.5, eosinophils were elevated at 15%. Venous gas showed mildly elevated pCO2 of 56, pH was normal at 7.34 suggesting that this is chronic and compensated. Metabolic panel was entirely normal, blood sugar 94. LFTs unremarkable, CRP less than 0.5. BNP very minimally elevated at 430, he has had a previous echo that showed a normal EF in reviewing his old records. COVID, influenza, RSV were negative. Point of care troponin was 0. D-dimer markedly elevated at 3.7, so I did elect to do a CT scan of the chest with contrast. By my review, there are no large central PE. He has aortic stent in place with evidence of old surrounding clot. This is read by Radiology as follows: 1. No CT evidence of pulmonary thromboembolic disease. 2. No intrathoracic consolidation. 3. Stable appearance of posterior mediastinum likely old contained rupture. Stable descending thoracic aortic stent graft and descending thoracic aortic excluded aneurysm. 4. Scattered areas of endobronchial mucous plugging. At this time cannot find any evidence of pneumonia, myocardial infarction, congestive heart failure, pleural effusion, pulmonary embolism, anemia, sepsis, or other acute process contributing to worsening shortness of breath. I do think he likely has some underlying worsening of his COPD and I am treating him for an exacerbation with doxycycline and prednisone. I have asked him to follow up with Pulmonary as planned in a week and a half for so. If needed due to lack of improvement, follow up with primary care in the meantime. For worsening in the meantime, return to the emergency department Vital Signs Vital signs: Initial Vital Signs Temperature 97.5 F L 06/06/22 14:33 Temperature Source Temporal Artery Scan 06/06/22 14:33 Pulse Rate 84 06/06/22 14:33 Pulse Rhythm 06/06/22 14:33 Respiratory Rate 34 H 06/06/22 14:33 Blood Pressure 174/74 H 06/06/22 14:33 Blood Pressure Mean 107 06/06/22 14:33 Blood Pressure Position Sitting 06/06/22 14:33 Pulse Oximetry 96 06/06/22 14:33 Oxygen Delivery Method 06/06/22 14:33 Vital Signs Temperature 97.5 F L 06/06/22 14:33 Pulse Rate 84 06/06/22 14:33 Respiratory Rate 34 H 06/06/22 14:33 Blood Pressure 174/74 H 06/06/22 14:33 Pulse Oximetry 96 06/06/22 14:33 Oxygen Delivery Method 06/06/22 14:33 Temperature 97.5 F L 06/06/22 14:33 Pulse Rate 67 06/06/22 18:32 Respiratory Rate 20 06/06/22 18:32 Blood Pressure 156/91 H 06/06/22 18:32 Pulse Oximetry 96 06/06/22 18:32 Oxygen Delivery Method 06/06/22 18:32 Medical Decision Making Lab Data Labs: Lab Results 06/06/22 06/06/22 06/06/22 Range/Units 15:12 15:26 15:26 WBC 6.20 (4.50-11.00) K/uL RBC 4.45 (4.30-5.90) m/uL Hgb 12.5 L (13.5-17.5) gm/dL Hct 39.0 (37.0-53.0) % MCV 88 (80-100) fL MCH 28 (26-34) pg MCHC 32 (32-36) gm/dL RDW Coeff of Zachary 13.9 (11.5-15.5) % Plt Count 188 (140-440) K/uL Neut % (Auto) 51.7 (42.0-72.0) % Lymph % (Auto) 23.1 (20-44) % Corson % (Auto) 8.5 (0.0-11.0) % Eos % (Auto) 15.0 H (0.0-7.0) % Baso % (Auto) 1.1 (0.0-3.0) % Neut # (Auto) 3.20 (1.7-7.0) K/uL Lymph # (Auto) 1.43 (0.90-2.90) K/uL Corson # (Auto) 0.50 (0.00-0.90) K/UL Eos # (Auto) 0.90 H (0.00-0.50) K/uL Baso # (Auto) 0.07 (0.00-0.30) K/uL D-Dimer Quant (PE/DVT) 3.71 H (0.00-0.50) ug/ml VBG pH (7.32-7.43) VBG pCO2 (40-50) mmHG VBG pO2 (25-47) mmHG VBG HCO3 (21-28) mmol/L Sodium (135-149) mmol/L Potassium (3.6-5.1) mmol/L Chloride (96-114) mmol/L Carbon Dioxide (20-32) mmol/L BUN (7-30) mg/dL Creatinine (0.5-1.5) mg/dL Estimated Creat Clear Estimated GFR ml/min Glucose (60-115) mg/dL Calcium (8.4-10.6) mg/dL Total Bilirubin (0.1-1.5) mg/dL Direct Bilirubin (0.0-0.5) mg/dL AST (12-35) U/L ALT (4-50) U/L Alkaline Phosphatase (40-150) U/L C-Reactive Protein (0.5-1.0) mg/dL NT-Pro-B Natriuret Pep pg/mL Total Protein (6.0-8.3) g/dL Albumin (3.3-5.0) g/dL SARS-CoV-2 (PCR) Negative SARS-CoV-2 (Negative) Influenza Type A (PCR) Negative PCR FLU A (Negative) Influenza Type B (PCR) Negative PCR FLU B (Negative) RSV (PCR) Negative PCR RSV (Negative) POC Troponin I (0.01-0.04) ng/ml 06/06/22 06/06/22 06/06/22 Range/Units 15:26 15:26 15:51 WBC (4.50-11.00) K/uL RBC (4.30-5.90) m/uL Hgb (13.5-17.5) gm/dL Hct (37.0-53.0) % MCV (80-100) fL MCH (26-34) pg MCHC (32-36) gm/dL RDW Coeff of Zachary (11.5-15.5) % Plt Count (140-440) K/uL Neut % (Auto) (42.0-72.0) % Lymph % (Auto) (20-44) % Cors[place] % (Auto) (0.0-11.0) % Eos % (Auto) (0.0-7.0) % Baso % (Auto) (0.0-3.0) % Neut # (Auto) (1.7-7.0) K/uL Lymph # (Auto) (0.90-2.90) K/uL Cors[place] # (Auto) (0.00-0.90) K/UL Eos # (Auto) (0.00-0.50) K/uL Baso # (Auto) (0.00-0.30) K/uL D-Dimer Quant (PE/DVT) (0.00-0.50) ug/ml VBG pH 7.341 (7.32-7.43) VBG pCO2 56 H (40-50) mmHG VBG pO2 27.1 (25-47) mmHG VBG HCO3 30 H (21-28) mmol/L Sodium 141 (135-149) mmol/L Potassium 4.5 (3.6-5.1) mmol/L Chloride 108 (96-114) mmol/L Carbon Dioxide 28 (20-32) mmol/L BUN 16 (7-30) mg/dL Creatinine 1.3 (0.5-1.5) mg/dL Estimated Creat Clear 45.20 Estimated GFR 57 ml/min Glucose 94 (60-115) mg/dL Calcium 8.7 (8.4-10.6) mg/dL Total Bilirubin 0.6 (0.1-1.5) mg/dL Direct Bilirubin 0.2 (0.0-0.5) mg/dL AST 25 (12-35) U/L ALT 16 (4-50) U/L Alkaline Phosphatase 62 (40-150) U/L C-Reactive Protein < 0.5 L (0.5-1.0) mg/dL NT-Pro-B Natriuret Pep 430 pg/mL Total Protein 6.7 (6.0-8.3) g/dL Albumin 4.0 (3.3-5.0) g/dL SARS-CoV-2 (PCR) (Negative) Influenza Type A (PCR) (Negative) Influenza Type B (PCR) (Negative) RSV (PCR) (Negative) POC Troponin I 0.00 L (0.01-0.04) ng/ml Discharge Plan Discharge Clinical Impression: COPD (chronic obstructive pulmonary disease) Patient Disposition: Home, Self-Care Condition: Improved Instructions: COPD (Chronic Obstructive Pulmonary Disease) (DC) Additional Instructions: Follow-up with pulmonology as planned. Antibiotic and steroid as prescribed for exacerbation of underlying COPD. Return for worsening shortness of breath. Primary care follow-up if not improving over the next few days. Prescriptions: No Action losartan [Cozaar] 50 mg tablet 50 mg PO DAILY atorvastatin 40 mg tablet 40 mg PO DAILY montelukast 10 mg tablet 10 mg PO QHS Xarelto 10 mg Tablet 20 mg PO DAILY@1800 Qty: 30 0RF prednisone 20 mg tablet 20 mg PO DAILY Qty: 3 0RF amoxicillin-pot clavulanate 875-125 mg tablet 1 tab PO BID Qty: 6 0RF metoprolol succinate 25 mg capsule,sprinkle,ER 24hr 50 mg PO BID Qty: 120 0RF Follow Up/Referrals: Provider,Not a Local [Primary Care Provider] - Stand Alone Forms: [employer] Info Instructions
== END 2022-06-06 18:39 | disposition home or self-care (01) ==
PROVIDERS: Emergency Provider Emergency Medicine
DX: J44.9 Chronic obstructive pulmonary disease, unspecified (principal)
CPT/HCPCS: 36415; 71260; 80048; 80076; 82803; 83880; 84484; 85025; 85379; 86140; 87502; 87634; 87635; 93005; 94640; 94761; 99284; 99285; J7512; Q9967

== ENCOUNTER 2022-12-30 12:10 | Emergency (ER) | payer MEDICARE, SELFPAY ==
[2022-12-30 12:28] VITALS: BP 132/57; PULSE 65; RESP 30; TEMP 36.2; O2SAT 92; BMI 24.4
--- NOTE | 2022-12-30 13:21 | CRLHL7_ITS ---
For Patients: As a result of the Cures Act, medical imaging exams and procedure reports are released immediately into your electronic medical record. You may view this report before your referring provider. If you have questions, please contact your health care provider. INDICATION: Shortness of breath TECHNIQUE: Chest 2 views COMPARISON: 03/14/2022 FINDINGS: Aortic mesh again noted. Cardiomegaly. Clear lungs. No fracture. IMPRESSION: No acute findings. Dictated by Galindo Roy MD @ 12/30/2022 3:05:13 PM (Electronically Signed)
--- NOTE | 2022-12-30 13:24 | ED_ITS ---
HPI - SOB/Dyspnea General Chief Complaint: Shortness of Breath/Dyspnea Stated Complaint: trouble breathing Time Seen by Provider: 12/30/22 12:56 History of Present Illness HPI Narrative: This 77-year-old male comes in reporting shortness of breath worsening over the past 3 or 4 days. He does have a history of COPD an asthma. 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 He was told that this can flare up and contribute to some shortness of breath. He does report a cough. He does arrive here with normal vital signs except his respiratory rate is a bit increased. He is not using accessory muscles for breathing. He does use inhaled steroid and albuterol. Related Data Home Medications Medication Instructions Recorded Confirmed atorvastatin 40 mg tablet 40 mg PO DAILY 03/14/22 03/14/22 losartan 50 mg tablet (Cozaar) 50 mg PO DAILY 03/14/22 03/14/22 montelukast 10 mg tablet 10 mg PO QHS 03/14/22 03/14/22 Previous Rx's Medication Instructions Recorded amoxicillin 875 mg-potassium 1 tab PO BID #6 tabs 03/18/22 clavulanate 125 mg tablet metoprolol succinate 25 mg capsule 50 mg (2 x 25 mg) PO BID #120 ea 03/18/22 sprinkle, ext. release 24 hr prednisone 20 mg tablet 20 mg PO DAILY #3 tabs 03/18/22 rivaroxaban 10 mg tablet (Xarelto) 20 mg (2 x 10 mg) PO DAILY@1800 03/18/22 #30 tabs methylprednisolone 4 mg tablets in See Rx Instructions PO .COMPLEX 12/30/22 a dose pack (Medrol (Delfino)) #21 ea Allergies Allergy/AdvReac Type Severity Reaction Status Date / Time naproxen [From Naprosyn] Allergy Mild Verified 03/14/22 17:27 Review of Systems Status of ROS: Reports: 10 or more systems reviewed and unremarkable except as noted in History and below Narrative: Constitutional: No fevers, no weight gain or loss. Eyes: No discharge. No vision changes. HENT: No congestion, no sore throat, no ear pain. Cardiovascular: No chest pain, no palpitations. Respiratory: Shortness of breath as described above. He does report a cough that is not productive. Gastrointestinal: No abdominal pain, no vomiting, no diarrhea. Genitourinary: No dysuria, no hematuria. Musculoskeletal: Normal range of motion. Skin: No rashes, no pruritis. Neurological: No dizziness, weakness, sensory change, speech change. Endo/Heme/Allergies: No bruising or bleeding. No polydipsia. Pysch: no suicidality, no anxiety, no insomnia. All other systems reviewed and are negative. 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 HEENT: Normocephalic, atraumatic. Neck: Normal range of motion. Nontender. Supple. Heart: Regular. No murmurs. Normal rate. Intact distal pulses. Lungs: Bilateral rhonchi and wheezes. No use of accessory muscles for breathing. Oximetry at 95% on room air. Abdomen: Normal bowel sounds. Nontender. No rebound tenderness. Genitalia: Deferred. Back: No midline tenderness. Normal range of motion. Extremities: Normal range of motion. No injury. Skin: Intact. No rash. Warm. No erythema or pallor. Neurologic: No altered sensation. No weakness. Alert and oriented. Psychiatric: No suicidality. No anxiety or depression. No insomnia. Nursing notes and vitals signs are reviewed. Const: Vital Signs, click to edit/add: Vital Signs - 24 hr 12/30/22 12:28 Temperature 97.1 F L Pulse Rate [Pulse Oximeter] 65 Respiratory Rate 30 H Blood Pressure [Ri ght Upper Arm] 132/57 L Pulse Oximetry 92 Oxygen Delivery Me thod Room Air Course Vital Signs Vital signs: Initial Vital Signs Temperature 97.1 F L 12/30/22 12:28 Temperature Source Temporal Artery Scan 12/30/22 12:28 Pulse Rate 65 12/30/22 12:28 Respiratory Rate 30 H 12/30/22 12:28 Respiratory Effort Normal 12/30/22 12:28 Respiratory Depth Normal 12/30/22 12:28 Respiratory Pattern Normal 12/30/22 12:28 Blood Pressure 132/57 L 12/30/22 12:28 Blood Pressure Mean 82 12/30/22 12:28 Blood Pressure Position Sitting 12/30/22 12:28 Pulse Oximetry 92 12/30/22 12:28 Oxygen Delivery Method Room Air 12/30/22 12:28 Vital Signs Temperature 97.1 F L 12/30/22 12:28 Pulse Rate 65 12/30/22 12:28 Respiratory Rate 30 H 12/30/22 12:28 Blood Pressure 132/57 L 12/30/22 12:28 Pulse Oximetry 92 12/30/22 12:28 Oxygen Delivery Method Room Air 12/30/22 12:28 Temperature 97.1 F L 12/30/22 12:28 Pulse Rate 65 12/30/22 12:28 Respiratory Rate 30 H 12/30/22 12:28 Blood Pressure 132/57 L 12/30/22 12:28 Pulse Oximetry 92 12/30/22 12:28 Oxygen Delivery Method Room Air 12/30/22 12:28 MDM - SOB/Dyspnea MDM Narrative Medical decision making narrative: This patient comes in reporting worsening shortness of breath over the past day or so. He has a history of COPD and asthma. On exam he has bilateral rhonchi and wheezes. Chest x-ray shows no acute findings. He does have a mesh in place for an aortic aneurysm repair. The patient received a DuoNeb treatment here along with an oral dose of dexamethasone 10 mg. He states that he is feeling better. He has oximetry at 95% on room air and other vital signs are normal. At the time of discharge the patient appears safe for outpatient management. The treatment plan is reviewed along with written and verbal return precautions. Reasons to return and the importance of close followup were also reviewed. The patient received prescription for Medrol Dosepak. Lab Data Labs: Lab Results 12/30/22 Range/Units 13:21 SARS-CoV-2 (PCR) Negative SARS-CoV-2 (Negative) Influenza Type A (PCR) Negative PCR FLU A (Negative) Influenza Type B (PCR) Negative PCR FLU B (Negative) RSV (PCR) Negative PCR RSV (Negative) Imaging Data Chest x-ray: Radiologist's impression: No acute findings. Discharge Plan Discharge Clinical Impression: Asthma with acute exacerbation Patient Disposition: Home, Self-Care Condition: Improved Additional Instructions: Take medication as prescribed. Follow up with MD as needed. Return if worsening. Prescriptions: New methylprednisolone [Medrol (Delfino)] 4 mg tablets,dose pack See Rx Instructions .ROUTE .COMPLEX Qty: 21 0RF Rx Instructions: orally per package directions No Action losartan [Cozaar] 50 mg tablet 50 mg PO DAILY atorvastatin 40 mg tablet 40 mg PO DAILY montelukast 10 mg tablet 10 mg PO QHS Xarelto 10 mg Tablet 20 mg PO DAILY@1800 Qty: 30 0RF prednisone 20 mg tablet 20 mg PO DAILY Qty: 3 0RF amoxicillin-pot clavulanate 875-125 mg tablet 1 tab PO BID Qty: 6 0RF metoprolol succinate 25 mg capsule,sprinkle,ER 24hr 50 mg PO BID Qty: 120 0RF Follow Up/Referrals: Provider,Not a Local [Primary Care Provider] - Stand Alone Forms: [facility] Info Instructions
[2022-12-30] MEDS: IPRAT-ALBUT 0.5-2.5 MG/3 ML NEB 1 NEB IH (13:32)
[2022-12-30] MEDS: dexAMETHasone 10 MG/ML inj PO (13:32)
[2022-12-30 14:08] LABS: PCR FLU A Negative PCR FLU A (Negative); PCR FLU B Negative PCR FLU B (Negative); PCR RSV Negative PCR RSV (Negative)
[2022-12-30 14:09] LABS: SARS PCR* Negative SARS-CoV-2 (Negative)
== END 2022-12-30 15:44 | disposition home or self-care (01) ==
PROVIDERS: Emergency Provider Emergency Medicine Emergency Medical Services
DX: J45.901 Unspecified asthma with (acute) exacerbation (principal)
CPT/HCPCS: 71046; 87631; 94640; 99283; 99284; J1100

== ENCOUNTER 2023-03-16 08:19 | Emergency (ER) | payer MEDICARE, SELFPAY ==
[2023-03-16 08:31] VITALS: BP 152/83; PULSE 77; RESP 20; TEMP 37; O2SAT 100; BMI 24.4
--- NOTE | 2023-03-16 08:33 | CRLHL7_ITS ---
For Patients: As a result of the Century Cures Act, medical imaging exams and procedure reports are released immediately into your electronic medical record. You may view this report before your referring provider. If you have questions, please contact your health care provider. INDICATION: Cough COMPARISON: 1822 TECHNIQUE: 1 view chest radiograph. FINDINGS: Lung volumes are good. No focal consolidations. No pulmonary edema. No pleural effusion. No pneumothorax. No pneumomediastinum. Unchanged cardiomediastinal silhouette. Stent graft material extending from the aortic arch through the distal thoracic aorta. Unchanged ectatic course of the aorta. Bones: Normal for age. IMPRESSION: Lungs clear. No acute findings. Dictated by Iliana Malagon MD @ 03/16/2023 8:52:18 AM (Electronically Signed)
--- NOTE | 2023-03-16 08:40 | ED.GENADULT ---
HPI - General Adult General Date Seen: 03/16/23 Chief complaint: Cough Stated complaint: cough Time Seen by Provider: 03/16/23 08:23 Source: patient Mode of arrival: ambulatory Limitations: no limitations History of Present Illness HPI narrative: Patient is a 78-year-old male who presents with 1 week of cough, no significant shortness of breath but has been wheezy. Has underlying asthma, has been using his inhaler a few times a day. Says after 45 minutes or so help from that seems to wear off and the cough returns. He has not had a fever. He says he has chronic abdominal and back pain that is unchanged. He has not had any leg swelling or pain. He does report dizziness. He told the nurse that he is worried the cough might be related to the stents that he has had placed in his heart previously. He did not mention anything about that to me. He has not had chest pain. Related Data Home Medications Medication Instructions Recorded Confirmed atorvastatin 40 mg tablet 40 mg PO DAILY 03/14/22 03/14/22 losartan 50 mg tablet (Cozaar) 50 mg PO DAILY 03/14/22 03/14/22 montelukast 10 mg tablet 10 mg PO QHS 03/14/22 03/14/22 Previous Rx's Medication Instructions Recorded amoxicillin 875 mg-potassium 1 tab PO BID #6 tabs 03/18/22 clavulanate 125 mg tablet metoprolol succinate 25 mg capsule 50 mg (2 x 25 mg) PO BID #120 ea 03/18/22 sprinkle, ext. release 24 hr prednisone 20 mg tablet 20 mg PO DAILY #3 tabs 03/18/22 rivaroxaban 10 mg tablet (Xarelto) 20 mg (2 x 10 mg) PO DAILY@1800 03/18/22 #30 tabs methylprednisolone 4 mg tablets in See Rx Instructions PO .COMPLEX 12/30/22 a dose pack (Medrol (Delfino)) #21 ea benzonatate 200 mg capsule 200 mg PO BID PRN cough #14 caps 03/16/23 Allergies Allergy/AdvReac Type Severity Reaction Status Date / Time naproxen [From Naprosyn] Allergy Mild Verified 03/14/22 17:27 Review of Systems Status of ROS: Reports: 6 or more systems reviewed and unremarkable except as noted in History and below [facility] Medical History 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 ?Q25.43 - Congenital aneurysm of aorta (ICD-10) Ascending aortic aneurysm ?I71.21 - Aneurysm of the ascending aorta, without rupture (ICD-10) Abnormal echocardiogram ?R93.1 - Abnormal findings on diagnostic imaging of heart and coronary circulation (ICD-10) Moderate persistent asthma ?J45.40 - Moderate persistent asthma, uncomplicated (ICD-10) COPD (chronic obstructive pulmonary disease) ?J44.9 - Chronic obstructive pulmonary disease, unspecified (ICD-10) Dyspnea ?R06.00 - Dyspnea, unspecified (ICD-10) Hyperlipidemia ?E78.5 - Hyperlipidemia, unspecified (ICD-10) Essential hypertension ?I10 - Essential (primary) hypertension (ICD-10) Surgical History H/O craniotomy ?Z98.890 - Other specified postprocedural states (ICD-10) 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 In general, an alert, well-appearing patient. Head: Normocephalic, atraumatic. Eyes: Pupils are equal reactive. Extraocular movements are full. Conjunctivae are normal. ENT: Mucous membranes are moist. Throat is normal. Neck: Supple without lymphadenopathy. Heart: Regular rate and rhythm. No murmur or rub. Lungs: Diffuse wheezes and rhonchi. No increased work of breathing. Abdomen: Soft and nontender. No organomegaly. Extremities: Well perfused. No edema. No calf tenderness. Pulses intact. Neurologic: Patient is alert and oriented to person and place. Speech is fluent. Face is symmetric. Moves all extremities equally. Affect: Normal. Skin: Warm and dry. Well perfused. Const: Vital Signs, click to edit/add: Vital Signs - 24 hr 03/16/23 08:31 03/16/23 10:15 Temperature 98.6 F Pulse Rate [Right Pulse Oximeter] 77 92 Respiratory Rate 20 30 H Blood Pressure [Ri ght Upper Arm] 152/83 H 132/63 Pulse Oximetry 100 92 Oxygen Delivery Me thod Room Air Room Air Documenting provider has reviewed patient's vital signs: yes Course Course ED Course: I did do an EKG given the patient's concerns which shows a normal sinus rhythm, ventricular rate of 75 beats per minute without acute ST segment abnormalities. T-waves are unremarkable. I do not suspect his symptoms are likely cardiac, will go ahead and check a BNP. Chest x-ray by my review was clear, no evidence of infiltrate or congestive heart failure. Final radiology read is negative. I am treating with DuoNeb and prednisone. Symptoms sound most likely related to bronchitis or reactive airways. COVID is pending. Labs are reassuring. White blood cell count is normal at 7.1. No left shift. He does have an eosinophilia. Metabolic panel is normal. CRP less than 0.5, BNP 334. COVID influenza and RSV are all negative. Point of care troponin is 0.01. Again do not feel his symptoms are likely cardiac. He had a neb here with improvement in his wheezing. He had prednisone 60 mg here. I think he can be discharged home with continued use of his inhaler, prednisone, and I gave him some Tessalon Perles for his cough if he would like to try those. Discussed with him I would anticipate things should be feeling better over the next week or so, if not follow up with primary care. Return any time to the emergency department for acute worsening new symptoms such as fever, severe shortness of breath, chills vomiting etcetera. Vital Signs Vital signs: Initial Vital Signs Temperature 98.6 F 03/16/23 08:31 Temperature Source Temporal Artery Scan 03/16/23 08:31 Pulse Rate 77 03/16/23 08:31 Pulse Rhythm Regular 03/16/23 08:31 Respiratory Rate 20 03/16/23 08:31 Blood Pressure 152/83 H 03/16/23 08:31 Blood Pressure Mean 106 H 03/16/23 08:31 Blood Pressure Position Semi-Fowlers 03/16/23 08:31 Pulse Oximetry 100 03/16/23 08:31 Oxygen Delivery Method Room Air 03/16/23 08:31 Vital Signs Temperature 98.6 F 03/16/23 08:31 Pulse Rate 77 03/16/23 08:31 Respiratory Rate 20 03/16/23 08:31 Blood Pressure 152/83 H 03/16/23 08:31 Pulse Oximetry 100 03/16/23 08:31 Oxygen Delivery Method Room Air 03/16/23 08:31 Temperature 98.6 F 03/16/23 08:31 Pulse Rate 92 03/16/23 10:15 Respiratory Rate 30 H 03/16/23 10:15 Blood Pressure 132/63 03/16/23 10:15 Pulse Oximetry 92 03/16/23 10:15 Oxygen Delivery Method Room Air 03/16/23 10:15 Medical Decision Making Lab Data Labs: Lab Results 03/16/23 03/16/23 03/16/23 Range/Units 08:33 08:42 08:45 WBC 7.11 (4.50-11.00) K/uL RBC 4.77 (4.30-5.90) m/uL Hgb 13.2 L (13.5-17.5) gm/dL Hct 41.6 (37.0-53.0) % MCV 87 (80-100) fL MCH 28 (26-34) pg MCHC 32 (32-36) gm/dL RDW Coeff of Zachary 13.4 (11.5-15.5) % Plt Count 216 (140-440) K/uL Neut % (Auto) 55.2 (42.0-72.0) % Lymph % (Auto) 21.2 (20-44) % [place] % (Auto) 7.5 (0.0-11.0) % Eos % (Auto) 15.2 H (0.0-7.0) % Baso % (Auto) 0.6 (0.0-3.0) % Neut # (Auto) 3.93 (1.7-7.0) K/uL Lymph # (Auto) 1.51 (0.90-2.90) K/uL [place] # (Auto) 0.50 (0.00-0.90) K/UL Eos # (Auto) 1.10 H (0.00-0.50) K/uL Baso # (Auto) 0.04 (0.00-0.30) K/uL Abs Immat Gran (auto) 0.02 (0.00-0.30) K/uL Imm/Tot Granulo (auto) 0.3 % Sodium 139 (135-149) mmol/L Potassium 4.6 (3.6-5.1) mmol/L Chloride 100 (96-114) mmol/L Carbon Dioxide 27 (20-32) mmol/L Anion Gap 12 (7-15) mEq/L BUN 19 (7-30) mg/dL Creatinine 1.3 (0.5-1.5) mg/dL Estimated Creat Clear 44.49 Estimated GFR 57 ml/min Glucose 90 (60-115) mg/dL Calcium 8.6 (8.4-10.6) mg/dL C-Reactive Protein < 0.5 L (0.5-1.0) mg/dL NT-Pro-B Natriuret Pep 334 pg/mL SARS-CoV-2 (PCR) Negative SARS-CoV-2 (Negative) Influenza Type A (PCR) Negative PCR FLU A (Negative) Influenza Type B (PCR) Negative PCR FLU B (Negative) RSV (PCR) Negative PCR RSV (Negative) POC Troponin I 0.01 (0.01-0.04) ng/ml Discharge Plan Discharge Clinical Impression: Bronchitis Patient Disposition: Home, Self-Care Condition: Stable Instructions: Acute Bronchitis (ED) Additional Instructions: Continue using your inhaler every 4 hours or so for the next few days. Prednisone as prescribed. Tessalon Perles if needed for cough. For worsening respiratory symptoms, new symptoms such as fever, significant shortness of breath etcetera return to the emergency department. Otherwise, primary care follow-up if not improving over the next 1-2 weeks. Your heart tests were all normal. Prescriptions: New benzonatate 200 mg capsule 200 mg PO BID PRN (Reason: cough) Qty: 14 0RF No Action methylprednisolone [Medrol (Delfino)] 4 mg tablets,dose pack See Rx Instructions .ROUTE .COMPLEX Qty: 21 0RF Rx Instructions: orally per package directions losartan [Cozaar] 50 mg tablet 50 mg PO DAILY atorvastatin 40 mg tablet 40 mg PO DAILY montelukast 10 mg tablet 10 mg PO QHS Xarelto 10 mg Tablet 20 mg PO DAILY@1800 Qty: 30 0RF prednisone 20 mg tablet 20 mg PO DAILY Qty: 3 0RF amoxicillin-pot clavulanate 875-125 mg tablet 1 tab PO BID Qty: 6 0RF metoprolol succinate 25 mg capsule,sprinkle,ER 24hr 50 mg PO BID Qty: 120 0RF Follow Up/Referrals: Provider,Not a Local [Primary Care Provider] - Stand Alone [facility]: [facility]
[2023-03-16] MEDS: predniSONE 20 MG TABLET 60 MG PO (08:48)
[2023-03-16] MEDS: IPRAT-ALBUT 0.5-2.5 MG/3 ML NEB 1 NEB IH (08:55)
[2023-03-16 09:00] LABS: Basophils Absolute Auto 0.04 K/uL (0.00-0.30); Basophils Percent Auto 0.6 % (0.0-3.0); Eosinophils Percent Auto 15.2 % (0.0-7.0); Hematocrit 41.6 % (37.0-53.0); Hemoglobin* 13.2 gm/dL (13.5-17.5); Immature Granulocytes Abs Auto 0.02 K/uL (0.00-0.30); Immature Granulocytes Pct Auto 0.3 %; Lymphocytes Absolute Auto 1.51 K/uL (0.90-2.90); Lymphocytes Percent Auto 21.2 % (20-44); Mean Corpuscular HGB Conc 32 gm/dL (32-36); Mean Corpuscular Hemoglobin 28 pg (26-34); Mean Corpuscular Volume 87 fL (80-100); Monocytes Percent Auto 7.5 % (0.0-11.0); Neutrophils Absolute Auto 3.93 K/uL (1.7-7.0); Neutrophils Percent Auto 55.2 % (42.0-72.0); Platelet Count* 216 K/uL (140-440); RDW Coefficient of Variation % 13.4 % (11.5-15.5); Red Blood Count 4.77 m/uL (4.30-5.90); White Blood Count* 7.11 K/uL (4.50-11.00)
[2023-03-16 09:07] LABS: Slide Review Reflex No
[2023-03-16 09:15] LABS: Chloride* 100 mmol/L (96-114); Sodium* 139 mmol/L (135-149)
[2023-03-16 09:16] LABS: Potassium* 4.6 mmol/L (3.6-5.1)
[2023-03-16 09:18] LABS: Creatinine* 1.3 mg/dL (0.5-1.5); Est. Creatinine Clearance* 44.49; Estimated Glomerular Filt Rate 57 ml/min
[2023-03-16 09:19] LABS: Anion Gap 12 mEq/L (7-15); Blood Urea Nitrogen* 19 mg/dL (7-30); Calcium* 8.6 mg/dL (8.4-10.6); Carbon Dioxide* 27 mmol/L (20-32); Glucose* 90 mg/dL (60-115)
[2023-03-16 09:27] LABS: C Reactive Protein* < 0.5 mg/dL (0.5-1.0); NT Pro B Type NatriureticPept* 334 pg/mL
[2023-03-16 09:50] LABS: PCR FLU A Negative PCR FLU A (Negative); PCR FLU B Negative PCR FLU B (Negative); PCR RSV Negative PCR RSV (Negative)
[2023-03-16 09:52] LABS: Troponin, Point-of-Care* 0.01 ng/ml (0.01-0.04)
[2023-03-16 10:15] VITALS: BP 132/63; PULSE 92; RESP 30; O2SAT 92
[2023-03-16 10:16] LABS: SARS PCR* Negative SARS-CoV-2 (Negative)
--- NOTE | 2023-03-16 12:03 | ED.NURSE ---
Patient requested medications be sent to pharmacy in lieu of [employer]. Patient received paper RX to bring to pharmacy for Prednisone.
== END 2023-03-16 11:26 | disposition home or self-care (01) ==
PROVIDERS: Emergency Provider Emergency Medicine
DX: J40 Bronchitis, not specified as acute or chronic (principal); Z20.828 Contact with and (suspected) exposure to other viral communicable diseases
CPT/HCPCS: 36415; 71045; 80048; 83880; 84484; 85025; 86140; 87631; 93005; 94640; 99284; 99285; J7512